=== PATIENT | male | born 1970 | race Caucasian/White ===

== ENCOUNTER 2024-08-11 11:45 | Inpatient (IN) | payer OTHER, SELFPAY ==
--- NOTE | ~2024-08-11 | CT_ITS ---
CLINICAL HISTORY: Left flank pain, r o renal colic CT abdomen and pelvis without IV contrast. COMPARISON: None FINDINGS: Partially visualized lung bases are unremarkable. Hepatic steatosis. Normal gallbladder. Noncontrast appearance of the spleen, pancreas and adrenal glands are unremarkable. No right-sided hydronephrosis. No right renal or ureteral calculus. Mild left hydronephrosis. Mild left hydroureter. At the left UVJ there is a 3 mm ureteral calculus. Diminutive appendix. Mild distal colonic diverticulosis without evidence of diverticulitis. No mesenteric or retroperitoneal lymphadenopathy. Moderate aortoiliac atherosclerotic vascular calcifications. Normal appearance of the urinary bladder. Prostate calcifications present. Prostate is enlarged measuring up to 5.4 cm. No inguinal lymphadenopathy. Grade 1 retrolisthesis of L3 on L4, degenerative. Moderate lumbar spondylosis. IMPRESSION: 1. Left UVJ 3 mm calculus causes mild left hydronephrosis and hydroureter. 2. Prostatomegaly. 3. Hepatic steatosis. This document has been electronically signed by: Marcell Burnett MD on 08/11/2024 13:54:58
--- NOTE | ~2024-08-11 | XR_ITS ---
CLINICAL HISTORY: infected thumb. eval for osteo Three views of the right hand. COMPARISON: None FINDINGS: Distal radius and ulna appear intact. Carpal bones and metacarpals appear intact. Chronic healed fracture deformity of the 5th metacarpal. Well-defined lucency within the distal aspect of the 5th distal phalanx suggestive of osteomyelitis/Kyle's abscess. There is overlying soft tissue edema/swelling. No cortical destruction identified. IMPRESSION: 1. Lucency within the distal aspect of the 5th distal phalanx suggestive osteomyelitis/Kyle's abscess. No definite cortical destruction or pathologic fracture identified. This document has been electronically signed by: Marcell Burnett MD on 08/11/2024 13:10:19
--- NOTE | ~2024-08-11 | FL_ITS ---
EXAMINATION: FL GUIDANCE ONLY HISTORY: INTRAOPERATIVE GUIDANCE COMPARISON: Correlation is made with plain films of the right hand dated 08/11/2024. TECHNIQUE: Fluoroscopy time: 5.72 seconds. Cumulative Dose: 0.1295 mGy. DAP: 0.0078 mGym2 Images: 9. FINDINGS: Images demonstrate a probe in the distal phalanx of the thumb at the site of the previously seen lucency. FL/FL guidance in OR IMPRESSION: Fluoroscopy during procedure. Please see procedure report for additional information. Electronically signed by: Madan Mathew MD 08/12/2024 12:25 PM EDT
[2024-08-11 11:49] VITALS: BP 148/85; PULSE 72; RESP 18; TEMP 36.4; O2SAT 99; BMI 28.1
--- NOTE | 2024-08-11 11:49 | ED.ABDPAIN ---
HPI - Abdominal Pain General Chief Complaint: Abdominal Pain Stated Complaint: abd pain Time Seen by Provider: 08/11/24 12:10 Source: patient Mode of arrival: ambulatory Limitations: no limitations History of Present Illness ED Provider: Kathraine Fang APRN HPI narrative: 54 yo male with no known medical history but has not seen a PCP in over 10 years presents to the ER with complaints of intermittent lower back pain since yesterday with radiation to his left abdomen. No associated vomiting, diarrhea, urinary symptoms, constipation, fevers, chills, testicle pain. No abdominal surgical history. Former smoker (>5 yrs). Former alcohol drinker (>5 yrs). Also c/o right 1st finger swelling, lesion with intermittent bleeding when he hits it on an object. No pain, numbness, tingling. Has had fungal infections of other nails and has had a fungal infection in this nail in which he was treated with an oral agent but he noticed no change. Related Data Allergies Allergy/AdvReac Type Severity Reaction Status Date / Time No Known Allergies Allergy Verified 08/11/24 11:51 Review of Systems Review of Systems Yes all other systems are reviewed and are negative Constitutional: Reports no additional constitutional complaints, Denies body ache(s), Denies chills, Denies fever(s), Denies headache(s) and Denies weakness Eyes: Reports no additional eye complaints and Denies change in vision Reports system reviewed and no additional complaints, except as documented, Denies dizziness, Denies headache(s), Denies nasal congestion, Denies nasal discharge and Denies neck pain Cardiovascular: Reports no additional cardiovascular complaints, Denies chest pain, Denies leg edema and Denies dyspnea Respiratory: Reports no additional respiratory complaints, Denies cough and Denies dyspnea Gastrointestinal: Reports no additional gastrointestinal complaints, Reports abdominal pain, Denies diarrhea, Denies nausea and Denies vomiting Genitourinary: Denies urinary incontinence Musculoskeletal: Reports no additional musculoskeletal complaints, Reports back pain, Denies arthralgias, Denies joint swelling, Denies neck pain, Denies numbness and Denies tingling Skin/Breast: Reports system reviewed and no additional complaints, except as docu, Reports swelling, Reports nail changes, Reports change in nails, Reports erythema and Denies rash Reports system reviewed and no additional complaints, except as documented, Denies Abnormal speech present, Denies dizziness, Denies headache(s), Denies numbness, Denies tingling and Denies weakness [facility] Past Medical History Attestation statement: The following information was validated with the patient. Source: old records reviewed and nursing notes reviewed Social History Social History Unable to assess alcohol history related to: Unknown Smoked in Last 30 Days: No Use of substances other than those prescribed or required for medical reasons: No Advance Directives: No Advance Directives Information Provided: Yes Do you have a plan to hurt others: No Plan Physical Exam ED Vital Signs: Vital Signs - 24 hr 08/11/24 11:49 08/11/24 14:54 Temperature 97.5 F 97.5 F Pulse Rate 72 76 Respiratory Rate 18 18 Blood Pressure 148/85 H 129/78 Pulse Oximetry 99 99 Oxygen Delivery Method Room Air Room Air BMI result Body Mass Index 28.1 Const General: cooperative, healthy appearing, comfortable and no acute distress Orientation/consciousness: patient oriented x3 Limitations: no limitations HENMT Head: Yes normal to inspection Ears: hearing grossly normal bilaterally General nose exam: Normal external nose present Face and sinus: Yes normal facial exam Mouth: Normal oral and palatal mucosa present Throat: Yes posterior oropharynx normal Eyes General: appearance normal, both eyes and all related structures Pupils: Equal, round and reactive pupils present Neck Neck: Yes normal visual inspection Chest Chest palpation & inspection: normal inspection of the chest Resp Effort & Inspection: normal respiratory effort Auscultation: clear to auscultation bilaterally Cardio Rate: regular rate Rhythm: regular rhythm Peripheral pulses: Peripheral pulses 2+ throughout GI Inspection: Yes normal to inspection Palpation (GI): Soft to palpation, Tenderness to palpation present (GI) in the LUQ; with no rebound tenderness and no guarding Auscultation: normal bowel sounds General: Yes no CVA tenderness Back/Spine/Pelvis Back: no CVA tenderness Thoracic/Lumbar Spine: thoracic and lumbar spine normal to inspection Skin Other: General skin exam: no rashes or lesions noted Neuro General: patient oriented x3, no focal motor deficits and normal sensation to monofilament Cranial nerves: Yes Equal, round and reactive pupils present Cognition (Neuro): normal cognition Speech: No Abnormal speech present Gait exam (Neuro): Normal gait present Motor exam (neuro): 5/5 motor strength present throughout Extrem General: Yes normal to inspection Course Course Course Narrative: This is an RME performed by Demetria Suárez CNP: Additional HPI, ROS, PE not included below will be deferred to primary provider. Patient is a 54-year-old male who presents to the emergency department for evaluation of lower back pain bilaterally radiating to the abdomen. pain has been intermittent. Plan: Serum labs, urinalysis Reevaluation(s) Reevaluation #1: 1338- X-ray of right hand shows osteomyelitis of the 1st digit. At this time infection is suspected. Antibiotics ordered in addition to blood cultures and lactic acid. Anticipate admission Reevaluation #2: 1428- CAT scan shows a left UVJ 3 mm calculi with mild left hydro and hydroureter. Pain is well controlled. Patient has normal renal function. Can likely follow up outpatient with Urology Medical Decision Making Medical Decision Making [facility] Narrative: 54 yo male with no known medical history but has not seen a PCP in over 10 years presents to the ER with complaints of intermittent lower back pain since yesterday with radiation to his left abdomen. No associated vomiting, diarrhea, urinary symptoms, constipation, fevers, chills, testicle pain. No abdominal surgical history. Former smoker (>5 yrs). Former alcohol drinker (>5 yrs). Also c/o right 1st finger swelling, lesion with intermittent bleeding when he hits it on an object. No pain, numbness, tingling. Has had fungal infections of other nails and has had a fungal infection in this nail in which he was treated with an oral agent but he noticed no change. On exam has TTP LUQ with no rebound or guarding. +BS See PE for photos of right hand Will obtain labs, UA, CT, x-ray right hand Patient very anxious which he tells me has inhibited seeking medical care. Will give lorazepam. Differential Diagnosis Differential Diagnoses: The differential diagnosis associated with the presentation includes pancreatitis, renal colic, SBO, pyelo, gastritis Osteomyelitis, fungal nail infection Admission/Observation Consideration of admission/observation: Escalation of care including admission/observation considered X-ray is c/w with osteo. Will need admission for IV antibiotics Consult Healthcare Provider Management of the patient was discussed with: Hospitalist AJ @[phone]-accepted admit Lab Data [facility] Lab Attestation statement: I reviewed the patient's lab results. 08/11/24 12:19 08/11/24 12:19 Labs: Lab Results 08/11/24 08/11/24 08/11/24 Range/Units 12:19 13:56 14:58 WBC 8.3 (4.8-10.8) X10*3/uL RBC 5.38 (4.60-5.80) X10*6/uL Hgb 15.5 (14.0-18.0) g/dl Hct 44.8 (42.0-52.0) % MCV 83.3 (80.0-98.0) fL MCH 28.8 (27.0-33.0) pg MCHC 34.6 (31.0-36.0) g/dl RDW 13.3 (11.0-16.0) % Plt Count 262 (160-400) X10*3/uL MPV 9.5 (9.4-12.4) fL Immature Gran % (Auto) 0.2 (0.0-0.4) % Neut % (Auto) 72.9 (45-73) % Lymph % (Auto) 18.1 L (20-40) % [place] % (Auto) 7.4 (2-11) % Eos % (Auto) 0.7 (0-4) % Baso % (Auto) 0.7 (0-2) % Lymph # (Auto) 1.5 (1.2-4.9) X10*3/uL [place] # (Auto) 0.6 (0.1-1.2) X10*3/uL Eos # (Auto) 0.1 (0.0-0.4) X10*3/uL Baso # (Auto) 0.1 (0.0-0.2) X10*3/uL Abs Immat Gran (auto) 0.02 (0.00-0.03) X10*3/uL Absolute Neuts (auto) 6.1 (2.0-8.3) x10*3/uL Absolute Nucleated RBC 0.000 (0.0-0.012) X10*3/uL Nucleated RBC % (auto) 0.0 (0.0-0.2) /100WBC Sodium 141 (135-145) mmol/L Potassium 4.1 (3.3-5.1) mmol/L Chloride 109 H (96-108) mmol/L Carbon Dioxide 24 (22-29) mmol/L Anion Gap 12 (12-20) BUN 10 (9-16) mg/dL Creatinine 1.13 (0.5-1.4) mg/dL Estim Creat Clear Calc 78.8 Estimated GFR > 60 Random Glucose 123 H (60-115) mg/dL Lactic Acid 1.2 (0.5-2.0) mmol/L Calcium 9.7 (8.4-10.2) mg/dL Total Bilirubin 0.5 (0.0-1.0) mg/dL Direct Bilirubin 0.1 (0.0-0.5) mg/dL AST 32 (5-37) U/L ALT 58 H (0-40) U/L Alkaline Phosphatase 81 (39-117) U/L Total Protein 7.7 (6.5-8.0) g/dL Albumin 4.7 (3.5-5.0) g/dL Lipase 32 (8-78) U/L Urine Color Yellow Urine Appearance Cloudy Urine pH 5.5 (5.0-9.0) Ur Specific [place] 1.020 (1.005-1.025) Urine Protein 30 (1+) H (Neg-Trace) mg/dL Urine Glucose (UA) Negative (Negative) mg/dL Urine Ketones Trace (Negative) mg/dL Urine Blood Large (3+) H (Negative) Urine Nitrite Negative (Negative) Ur Leukocyte Esterase Trace H (Negative) Independent Interpretation I performed an independent interpretation of an: Plain X-Ray and CT Scan Interpretation: I independently reviewed the x-ray and CAT scan agree with the radiology report Radiology Impression Discussion of test interpretation with radiology: I have reviewed the radiologist's reading. Radiologist Impression: [address] [address] XRay Report Signed Patient: Michelet Curry MR#: [id number] : 1970 Acct:[id number] Age/Sex: 54 / M ADM Date: 08/11/24 Loc: .ED Attending Dr: Ordering Physician: Katharine Fang NP Date of Service: 08/11/24 Procedure(s): XR hand RT 2V Accession Number(s): [id number] cc: Katharine Fang NP; Physician,None ~ CLINICAL HISTORY: infected thumb. eval for osteo Three views of the right hand. COMPARISON: None FINDINGS: Distal radius and ulna appear intact. Carpal bones and metacarpals appear intact. Chronic healed fracture deformity of the 5th metacarpal. Well-defined lucency within the distal aspect of the 5th distal phalanx suggestive of osteomyelitis/Kyle's abscess. There is overlying soft tissue edema/swelling. No cortical destruction identified. IMPRESSION: 1. Lucency within the distal aspect of the 5th distal phalanx suggestive osteomyelitis/Kyle's abscess. No definite cortical destruction or pathologic fracture identified. This document has been electronically signed by: Marcell Burnett MD on 08/11/2024 13:10:[address] [place] [id number] [address] Scan Report Signed Patient: Michelet Curry MR#: [id number] : 1970 Acct:[id number] Age/Sex: 54 / M ADM Date: 08/11/24 Loc: HO.ED Attending Dr: Ordering Physician: Katharine Fang NP Date of Service: 08/11/24 Procedure(s): CT abdomen pelvis wo IV con Accession Number(s): [id number] cc: Katharine Fang NP; Physician,None ~ Report Number: [id number]: Total DLP = 538.00 mGy-cm CLINICAL HISTORY: Left flank pain, r o renal colic CT abdomen and pelvis without IV contrast. COMPARISON: None FINDINGS: Partially visualized lung bases are unremarkable. Hepatic steatosis. Normal gallbladder. Noncontrast appearance of the spleen, pancreas and adrenal glands are unremarkable. No right-sided hydronephrosis. No right renal or ureteral calculus. Mild left hydronephrosis. Mild left hydroureter. At the left UVJ there is a 3 mm ureteral calculus. Diminutive appendix. Mild distal colonic diverticulosis without evidence of diverticulitis. No mesenteric or retroperitoneal lymphadenopathy. Moderate aortoiliac atherosclerotic vascular calcifications. Normal appearance of the urinary bladder. Prostate calcifications present. Prostate is enlarged measuring up to 5.4 cm. No inguinal lymphadenopathy. Grade 1 retrolisthesis of L3 on L4, degenerative. Moderate lumbar spondylosis. IMPRESSION: 1. Left UVJ 3 mm calculus causes mild left hydronephrosis and hydroureter. 2. Prostatomegaly. 3. Hepatic steatosis. Medications Administered Generic Name Dose Route Start Last Admin Trade Name Freq PRN Reason Stop Dose Admin Vancomycin HCl 2,000 mg in 500 mls @ 250 mls/hr 08/11/24 13:35 08/11/24 14:08 Vancomycin/Ns IV 08/11/24 15:34 250 mls/hr ONCE ONE Administration Discontinued Medications Generic Name Dose Route Start Last Admin Trade Name Freq PRN Reason Stop Dose Admin Sodium Chloride 1,000 mls @ 999 mls/hr 08/11/24 12:26 08/11/24 12:36 Ns IV 08/11/24 13:26 999 mls/hr .Q1H1M STA Administration Ketorolac Tromethamine 15 mg 08/11/24 13:14 08/11/24 14:07 Ketorolac Tromethamine 15 Mg/Ml Vial IVPUSH 08/11/24 13:15 15 mg ONCE ONE Administration Lorazepam 0.5 mg 08/11/24 12:26 08/11/24 12:36 Lorazepam 2 Mg/Ml Vial IVPUSH 08/11/24 12:27 0.5 mg STAT STA Administration Critical Care Time Critical Care Time Critical Care Time: Yes Total Critical Care Time: 45 Attestation: Admission to the medicine service with discussion with hospitalist, re-evaluations and discussion of goals of care with patient Discharge Plan Discharge Clinical Impression: Osteomyelitis, Calculus of kidney Patient Disposition: Admitted As Inpatient Print Language: Korean
[2024-08-11 12:24] LABS: MANUAL DIFF FLAG NO
[2024-08-11 12:25] LABS: Basophils Absolute Auto 0.1 X10*3/uL (0.0-0.2); Basophils Percent Auto 0.7 % (0-2); Eosinophils Absolute Auto 0.1 X10*3/uL (0.0-0.4); Eosinophils Percent Auto 0.7 % (0-4); Hematocrit 44.8 % (42.0-52.0); Hemoglobin 15.5 g/dl (14.0-18.0); Imm Gran Abs Auto 0.02 X10*3/uL (0.00-0.03); Imm Gran Pct Auto 0.2 % (0.0-0.4); Lymphocytes Absolute Auto 1.5 X10*3/uL (1.2-4.9); Lymphocytes Percent Auto 18.1 % (20-40); Mean Corpuscular HGB Conc 34.6 g/dl (31.0-36.0); Mean Corpuscular Hemoglobin 28.8 pg (27.0-33.0); Mean Corpuscular Volume 83.3 fL (80.0-98.0); Mean Platelet Volume 9.5 fL (9.4-12.4); Monocytes Absolute Auto 0.6 X10*3/uL (0.1-1.2); Monocytes Percent Auto 7.4 % (2-11); Neutrophils Absolute Auto 6.1 x10*3/uL (2.0-8.3); Neutrophils Percent Auto 72.9 % (45-73); Platelet Count 262 X10*3/uL (160-400); Red Blood Count 5.38 X10*6/uL (4.60-5.80); Red Cell Distribution Width 13.3 % (11.0-16.0); White Blood Count 8.3 X10*3/uL (4.8-10.8)
[2024-08-11] MEDS: LORazepam 2 MG/ML VIAL 0.5 MG IVPUSH (12:36)
[2024-08-11] MEDS: 0.9 % Sodium Chloride 1,000 ML 999 ML IV (12:36)
[2024-08-11 13:12] LABS: Alanine Aminotransferase 58 U/L (0-40); Albumin Level 4.7 g/dL (3.5-5.0); Alkaline Phosphatase 81 U/L (39-117); Anion Gap 12 (12-20); Aspartate Amino Transferase 32 U/L (5-37); Bilirubin Direct 0.1 mg/dL (0.0-0.5); Bilirubin Total 0.5 mg/dL (0.0-1.0); Blood Urea Nitrogen 10 mg/dL (9-16); Calcium 9.7 mg/dL (8.4-10.2); Carbon Dioxide 24 mmol/L (22-29); Chloride 109 mmol/L (96-108); Creatinine Clr Calc Pharmacy 78.8; Estimated Glomerular Filt Rate > 60; Glucose Random 123 mg/dL (60-115); Lipase 32 U/L (8-78); Potassium 4.1 mmol/L (3.3-5.1); Sodium 141 mmol/L (135-145); Total Protein 7.7 g/dL (6.5-8.0)
[2024-08-11] MEDS: Ketorolac Tromethamine 15 MG/ML VIAL IVPUSH (14:07)
[2024-08-11] MEDS: vancomycin/NS 2,000 MG/500 ML PLAST..BAG 250 MG IV (14:08)
[2024-08-11 14:38] LABS: Lactic Acid 1.2 mmol/L (0.5-2.0)
--- NOTE | 2024-08-11 14:48 | P.HPHOSP_ITS ---
History of Present Illness Date of Service: 08/11/24 Chief Complaint: thumb pain, abdominal pain 54 year old man presenting with left flank pain. He reported having left flank pain with no other associated symptoms. Abd CT showed Left UVJ 3 mm calculus causes mild left hydronephrosis and hydroureter. incidentally his left thumb had what appeared to be a fungal infection and patient reported a hx of fungal infections fingernails of both hands. He reported that his right thumb would get worse and would heal. He reported symptoms for about a year of and on. Hand xray showed Lucency within the distal aspect of the 5th distal phalanx suggestive of osteomyelitis/Kyle's abscess. Labs WNL, vital signs stable. He was given a dose of vancomycin, ativan and toradol. He will be admitted for treatment of osteomyelitis and Hydronephrosis Review of Systems 2 Review of Systems: Denies any recent fever chills or decrease in appetite respiratory denies any shortness of breath or cough cardiovascular denied chest pain gastrointestinal denies any dysphagia abdominal pain nausea vomiting or diarrhea genitourinary denies any dysuria frequency or hematuria musculoskeletal denies any joint pain or swelling, right thumb discomfort neuropsych denies any weakness or seizures all other systems reviewed are negative [facility] Medical History (Updated 08/11/24 @ 15:45 by Mayelin Del Cid NP) No pertinent past medical history Pertinent family history: no significant family hx of cardiac disease Surgical History (Updated 08/11/24 @ 15:45 by Mayelin Del Cid NP) No pertinent past surgical history Social History (Updated 08/11/24 @ 15:45 by Mayelin Del Cid NP) Household Members: Spouse Unable to assess alcohol history related to: Unknown Substance Use Type: Marijuana Meds Allergies Allergy/AdvReac Type Severity Reaction Status Date / Time No Known Allergies Allergy Verified 08/11/24 11:51 Active Medications: Current Medications Vancomycin HCl (Vancomycin/Ns) 2,000 mg in 500 mls @ 250 mls/hr IV ONCE ONE Stop: 08/11/24 15:34 Last Admin: 08/11/24 14:08 Dose: 250 mls/hr Home Medications ?Medication ?Instructions ?Recorded ?Confirmed ?Last Taken ?Type No Known Home Meds 08/11/24 08/11/24 Unknown History Physical Exam 2 Vital Signs and Narrative: Vital Signs: Last Vital Signs Temp 97.5 F 08/11/24 11:49 Pulse 72 08/11/24 11:49 Resp 18 08/11/24 11:49 BP 148/85 H 08/11/24 11:49 Pulse Ox 99 08/11/24 11:49 O2 Del Method Room Air 08/11/24 11:49 BMI result Body Mass Index 28.1 Appearing in no acute distress head is normocephalic atraumatic eyes pupils are PERRLA sclera is anicteric mouth throat mucous membranes are intact and moist neck is supple no lymphadenopathy, no JVD noted lung sounds are clear to auscultation heart regular rate rhythm, clear S1, S2 positive bowel sounds, abdomen is soft, nontender neuro patient is alert x3, no focal deficits fungal infection to fingers Results Labs 08/11/24 12:19 08/11/24 12:19 Labs: Laboratory Results - last 24 hr 08/11/24 08/11/24 12:19 13:56 MCV 83.3 MCH 28.8 MCHC 34.6 RDW 13.3 Plt Count 262 MPV 9.5 Immature Gran % (Auto) 0.2 Neut % (Auto) 72.9 Lymph % (Auto) 18.1 L [place] % (Auto) 7.4 Eos % (Auto) 0.7 Baso % (Auto) 0.7 Lymph # (Auto) 1.5 [place] # (Auto) 0.6 Eos # (Auto) 0.1 Baso # (Auto) 0.1 Abs Immat Gran (auto) 0.02 Absolute Neuts (auto) 6.1 Absolute Nucleated RBC 0.000 Nucleated RBC % (auto) 0.0 Anion Gap 12 Estim Creat Clear Calc 78.8 Estimated GFR > 60 Random Glucose 123 H Lactic Acid 1.2 Calcium 9.7 Total Bilirubin 0.5 Direct Bilirubin 0.1 AST 32 ALT 58 H Alkaline Phosphatase 81 Total Protein 7.7 Albumin 4.7 Lipase 32 Assessment and Plan (1) Calculus of kidney: Status: Acute (2) Osteomyelitis: Status: Acute Plan 54 year old man admitted with thumb osteomyelitis and hydronephrosis Osteomyelitis hand x-ray showing 5th distal phalanx suggestive of osteomyelitis/Kyle's abscess IV Vancomycin ID and orthopedic surgery consultation pain management as needed will need picc line Abdominal pain urinating fine Abdominal CT showing left UVJ 3 mm calculus causing mild left hydronephrosis and hydroureter Urology consultation Finger nail fungus will discuss with ID 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 BMI 28.1 Weight management DVT prophylaxis with heparin Full code Quality Stroke Does the patient have a stroke diagnosis?: No VTE Prior VTE?: No VTE Risk Level:: Medical - moderate - high VTE Device Contraindication: Treatment Not Indicated VTE Drug Contraindication: N/A - Med Ordered
[2024-08-11 14:54] VITALS: BP 129/78; PULSE 76; RESP 18; TEMP 36.4; O2SAT 99
[2024-08-11 15:04] LABS: Appearance Urine Cloudy; Color Urine Yellow; Glucose Urine UA Negative (Negative); Leukocyte Esterase Urine Trace (Negative); Nitrite Urine Negative (Negative); PH 5.5 (5.0-9.0); UMIC TRIGGER UACC YES; Urine Blood Large (3+) (Negative); Urine Ketones Trace mg/dL (Negative); Urine Protein 30 (1+) mg/dL (Neg-Trace)
--- NOTE | 2024-08-11 15:15 | PHA.MEDREC ---
Addendum entered by Armando Schwartz RP 08/11/24 16:15: MED REC CHECKED BY [facility] Original Note: Pharmacy Consult ? Medication Reconciliation Pharmacy has completed the medication reconciliation. Patient confirmed.
[2024-08-11 15:16] LABS: Bacteria Urine None Seen (None Seen); Hyaline Casts Urine >20 /LPF (0-2); RBC Urine >20 /HPF (0-2); WBC Urine 0-5 /HPF (0-5)
[2024-08-11 15:38] VITALS: BP 129/83; PULSE 61; RESP 17; TEMP 36.8; O2SAT 96
--- NOTE | 2024-08-11 16:02 | PHA.PROG ---
Admission Date/Time: August 11, 2024 15:01 Indication: SKIN Weight in k.9 kg Adjusted body weight in Kg: [place] body weight in Kg: Obesity Dosing Indication % IBW: Serum Creatinine - Last 168 Hours 08/11/24 12:19 Creatinine 1.13 Estimated CrCl and GFR - Last 168 Hours 08/11/24 12:19 Estim Creat Clear Calc 78.8 Estimated GFR > 60 Vancomycin Loading Dose: 2000 MG Current Vancomycin Dosing Regimen: 750 MG Q12H Vancomycin Monitoring using AUC goal of 400 - 600 range with trough as surrogate marker: BRA=698 TROUGH=13.8 Date and Time for next Vancomycin Level to be drawn: 08/12/24 @1200 Pharmacist Comments on Vancomycin Plan: Vancomycin dosing will take advantage of [employer] as a clinical decision support tool that uses Bayesian modeling to calculate individual patient's pharmacokinetic parameters and forecast the patient's drug concentration time course with the target goal AUC 24 range of 400 - 600 mg/L/hr.
--- NOTE | 2024-08-11 16:23 | PM.UROCN ---
History of Present Illness Consult details Consult date: 08/11/24 Narrative: CC: Distal left ureteric stone 54-year-old male Present with symptoms of intermittent left flank pain Pain as high as 8/10 and waxing and waning in nature Denies hematuria, dysuria, urgency or frequency Noted to have osteomyelitis with overlying fungal infection of 5th distal phalanx Creatinine 1.1, calcium 9.7, WBC 8.3 CT imaging reviewed personally - Left UVJ 3 mm calculus causes mild left hydronephrosis and hydrour Recommend IV fluids, alpha-johnnie, prednisone. Stone should pass Review of Systems Constitutional: Constitutional: Reports as per HPI and Reports no additional constitutional complaints Cardiovascular: Cardiovascular: Reports as per HPI and Reports no additional cardiovascular complaints Respiratory: Respiratory: Reports as per HPI and Reports no additional respiratory complaints Gastrointestinal: Gastrointestinal: Reports as per HPI and Reports no additional gastrointestinal complaints Genitourinary: Genitourinary: Reports as per HPI Musculoskeletal: Musculoskeletal: Reports no additional musculoskeletal complaints and Reports as per HPI Neurologic: Reports system reviewed and no additional complaints, except as documented and Reports as per HPI REPLACED BY [facility] Past Medical History Medical History (Updated 08/11/24 @ 16:27 by Ramos Cloud MD) No pertinent past medical history Surgical History Surgical History (Updated 08/11/24 @ 15:45 by Mayelin Del Cid NP) No pertinent past surgical history Social History Social History (Updated 08/11/24 @ 15:45 by Mayelin Del Cid NP) Household Members: Spouse Unable to assess alcohol history related to: Unknown Smoked in Last 30 Days: No Use of substances other than those prescribed or required for medical reasons: No Substance Use Type: Marijuana Advance Directives: No Advance Directives Information Provided: Yes Do you have a plan to hurt others: No Plan Meds Allergies Allergy/AdvReac Type Severity Reaction Status Date / Time No Known Allergies Allergy Verified 08/11/24 11:51 Active Medications: Current Medications Acetaminophen (Acetaminophen 325 Mg Tablet) 650 mg PO Q6H PRN PRN Reason: Pain, Mild 1-3,fever,headache Calcium Carbonate (Calcium Carbonate 750 Mg Tab.Chew) 750 mg PO Q4H PRN PRN Reason: Heartburn Heparin Sodium (Porcine) (Heparin Sodium,Porcine 5,000 Unit/Ml Vial) 5,000 unit SUBCUT Q12H CR Vancomycin HCl 750 mg/ Sodium (Chloride) 265 mls @ 265 mls/hr IV Q12H [facility] Ketorolac Tromethamine (Ketorolac Tromethamine 30 Mg/Ml Vial) 30 mg IVPUSH Q6H PRN PRN Reason: Pain, Mild (Pain Scale 1-3) Lorazepam (Lorazepam 0.5 Mg Tablet) 0.5 mg PO Q8H PRN PRN Reason: Anxiety Magnesium Hydroxide (Milk Of Magnesia 30 Ml Oral.Susp) 30 ml PO DAILY PRN PRN Reason: Constipation Melatonin (Melatonin 3 Mg Tablet) 6 mg PO BEDTIME PRN PRN Reason: Insomnia Morphine Sulfate (Morphine Sulfate 2 Mg/Ml Cartridge) 1 mg IVPUSH Q6H PRN; Protocol PRN Reason: Pain, Severe (Pain Scale 7-10) Ondansetron HCl (Ondansetron Hcl 4 Mg/2 Ml Vial) 4 mg IVPUSH Q8H PRN PRN Reason: Nausea and Vomiting Oxycodone HCl (Oxycodone Hcl Immed Release 5 Mg Tablet) 5 mg PO Q6H PRN PRN Reason: Pain, Moderate(Pain Scale 4-6) Pharmacy Consult (Consult Rx Vancomycin Dosing) 1 each MISCELLANE DAILY PRN PRN Reason: Consult order Sodium Chloride (0.9 % Sodium Chloride Flush 3 Ml Syringe) [facility] Home Medications ?Medication ?Instructions ?Recorded ?Confirmed ?Last Taken ?Type No Known Home Meds 08/11/24 08/11/24 Unknown History Physical Exam Vital Signs: Vital Signs: Last Vital Signs Temp 98.3 F 08/11/24 15:38 Pulse 61 08/11/24 15:38 Resp 17 08/11/24 15:38 BP 129/83 08/11/24 15:38 Pulse Ox 96 08/11/24 15:38 O2 Del Method Room Air 08/11/24 15:38 BMI result Body Mass Index 28.1 Const: General: cooperative, healthy appearing, comfortable and no acute distress Orientation/consciousness: patient oriented x3 HEENT: Face and sinus: Yes normal facial exam Mouth: moist mucous membranes Neck: Neck: Yes normal visual inspection, Yes full ROM and Yes trachea midline Chest: Chest palpation & inspection: normal inspection of the chest Resp: Effort & Inspection: normal respiratory effort, able to speak in complete sentences and no respiratory distress GI: Inspection: Yes normal to inspection Back/Spine/Pelvis: Cervical Spine: normal cervical lordosis Thoracic/Lumbar Spine: thoracic and lumbar spine normal to inspection Skin: General skin exam: no rashes or lesions noted Neuro: General: patient oriented x3, tone normal and moves all extremities Extrem: General: Yes normal to inspection and Yes capillary refill normal Results Labs 08/11/24 12:19 08/11/24 12:19 Labs: Abnormal lab results 08/11/24 08/11/24 Range/Units 12:19 14:58 Lymph % (Auto) 18.1 L (20-40) % Chloride 109 H (96-108) mmol/L Random Glucose 123 H (60-115) mg/dL ALT 58 H (0-40) U/L Urine Protein 30 (1+) H (Neg-Trace) mg/dL Urine Blood Large (3+) H (Negative) Ur Leukocyte Esterase Trace H (Negative) Urine RBC >20 H (0-2) /HPF Short CBC 08/11/24 Range/Units 12:19 WBC 8.3 (4.8-10.8) X10*3/uL Hgb 15.5 (14.0-18.0) g/dl Hct 44.8 (42.0-52.0) % Plt Count 262 (160-400) X10*3/uL BMP 08/11/24 12:19 Sodium 141 Potassium 4.1 Chloride 109 H Carbon Dioxide 24 BUN 10 Creatinine 1.13 Calcium 9.7 Liver Function 08/11/24 Range/Units 12:19 Total Bilirubin 0.5 (0.0-1.0) mg/dL Direct Bilirubin 0.1 (0.0-0.5) mg/dL AST 32 (5-37) U/L ALT 58 H (0-40) U/L Alkaline Phosphatase 81 (39-117) U/L Albumin 4.7 (3.5-5.0) g/dL Urine 08/11/24 Range/Units 14:58 Urine Color Yellow Urine Appearance Cloudy Urine pH 5.5 (5.0-9.0) Ur Specific [place] 1.020 (1.005-1.025) Urine Protein 30 (1+) H (Neg-Trace) mg/dL Urine Glucose (UA) Negative (Negative) mg/dL All other labs normal. Assessment and Plan (1) Hydronephrosis concurrent with and due to calculi of kidney and ureter: Status: Acute Plan Medical expulsion therapy Tamsulosin plus prednisone plus fluids Observation Procedures Date of Service Date of Service: 08/11/24
[2024-08-11] MEDS: predniSONE 20 MG TABLET PO (16:35)
[2024-08-11] MEDS: Morphine Sulfate 2 MG/ML CARTRIDGE 1 MG IVPUSH ×2 (16:37→18:28)
--- NOTE | 2024-08-11 16:47 | P.CONOP_ITS ---
History of Present Illness [facility] Consult date: 08/11/24 Chief complaint: abd pain, Osteomyelitis Narrative: Patient is a 54-year-old male admitted to the hospital for abdominal pain and right thumb injury /infection patient reports many recurrent injuries to the nail of the right thumb patient reports he has had issues with fungal infections in the digits of both hands over the years, but that the infection in his right thumb has gotten quite severe patient does report drainage from the area, slight redness denies tenderness or significant swelling denies numbness or tingling Review of Systems 2 Review of Systems: Yes all other systems are reviewed and are negative [facility] Past Medical History Medical History (Updated 08/11/24 @ 16:53 by SELVIN Nash) No pertinent past medical history Surgical History Surgical History (Updated 08/11/24 @ 15:45 by Mayelin Del Cid NP) No pertinent past surgical history Social History Social History (Updated 08/11/24 @ 15:45 by Mayelin Del Cid NP) Household Members: Spouse Unable to assess alcohol history related to: Unknown Smoked in Last 30 Days: No Use of substances other than those prescribed or required for medical reasons: No Substance Use Type: Marijuana Advance Directives: No Advance Directives Information Provided: Yes Do you have a plan to hurt others: No Plan Meds Allergies Allergy/AdvReac Type Severity Reaction Status Date / Time No Known Allergies Allergy Verified 08/11/24 11:51 Active Medications: Current Medications Acetaminophen (Acetaminophen 325 Mg Tablet) 650 mg PO Q6H PRN PRN Reason: Pain, Mild 1-3,fever,headache Calcium Carbonate (Calcium Carbonate 750 Mg Tab.Chew) 750 mg PO Q4H PRN PRN Reason: Heartburn Heparin Sodium (Porcine) (Heparin Sodium,Porcine 5,000 Unit/Ml Vial) 5,000 unit SUBCUT Q12H CR Vancomycin HCl 750 mg/ Sodium (Chloride) 265 mls @ 265 mls/hr IV Q12H CR Ketorolac Tromethamine (Ketorolac Tromethamine 30 Mg/Ml Vial) 30 mg IVPUSH Q6H PRN PRN Reason: Pain, Mild (Pain Scale 1-3) Lorazepam (Lorazepam 0.5 Mg Tablet) 0.5 mg PO Q8H PRN PRN Reason: Anxiety Magnesium Hydroxide (Milk Of Magnesia 30 Ml Oral.Susp) 30 ml PO DAILY PRN PRN Reason: Constipation Melatonin (Melatonin 3 Mg Tablet) 6 mg PO BEDTIME PRN PRN Reason: Insomnia Morphine Sulfate (Morphine Sulfate 2 Mg/Ml Cartridge) 1 mg IVPUSH Q6H PRN; Protocol PRN Reason: Pain, Severe (Pain Scale 7-10) Last Admin: 08/11/24 16:37 Dose: 1 mg Ondansetron HCl (Ondansetron Hcl 4 Mg/2 Ml Vial) 4 mg IVPUSH Q8H PRN PRN Reason: Nausea and Vomiting Oxycodone HCl (Oxycodone Hcl Immed Release 5 Mg Tablet) 5 mg PO Q6H PRN PRN Reason: Pain, Moderate(Pain Scale 4-6) Pharmacy Consult (Consult Rx Vancomycin Dosing) 1 each MISCELLANE DAILY PRN PRN Reason: Consult order Prednisone (Prednisone 20 Mg Tablet) 20 mg PO DAILY [facility] Last Admin: 08/11/24 16:35 Dose: 20 mg Sodium Chloride (0.9 % Sodium Chloride Flush 3 Ml Syringe) [facility] Last Admin: 08/11/24 16:35 Dose: Not Given Tamsulosin HCl (Tamsulosin Hcl 0.4 Mg Capsule) 0.4 mg PO BEDTIME [facility] Home Medications ?Medication ?Instructions ?Recorded ?Confirmed ?Last Taken ?Type No Known Home Meds 08/11/24 08/11/24 Unknown History Physical Exam 2 Vital Signs: Vital Signs: Last Vital Signs Temp 98.3 F 08/11/24 15:38 Pulse 61 08/11/24 15:38 Resp 17 08/11/24 15:38 BP 129/83 08/11/24 15:38 Pulse Ox 96 08/11/24 15:38 O2 Del Method Room Air 08/11/24 15:38 BMI result Body Mass Index 28.1 Extrem: Other: Patient is alert, oriented, and in no acute distress. Neuro: Normal sensation of the tips of all digits of the right hand at this time Vascular: Cap refill brisk Pain: very minimal tenderness to palpation about the distal phalanx of the right thumb no tenderness to palpation of the pad of the right thumb ROM: patient was able to make a full closed fist and extend all other digits of the right hand fully and without difficulty Skin: significant deformity of the nail of the right thumb consistent with severe fungal infection there is some surrounding erythema and scant bloody discharge from the thumb no active purulent drainage at this time Psych: Appears grossly normal Affect normal Attitude cooperative Results Labs 08/11/24 12:19 08/11/24 12:19 Labs: Abnormal lab results 08/11/24 08/11/24 Range/Units 12:19 14:58 Lymph % (Auto) 18.1 L (20-40) % Chloride 109 H (96-108) mmol/L Random Glucose 123 H (60-115) mg/dL ALT 58 H (0-40) U/L Urine Protein 30 (1+) H (Neg-Trace) mg/dL Urine Blood Large (3+) H (Negative) Ur Leukocyte Esterase Trace H (Negative) Urine RBC >20 H (0-2) /HPF H & H 08/11/24 Range/Units 12:19 Hgb 15.5 (14.0-18.0) g/dl Hct 44.8 (42.0-52.0) % All other labs normal. Diagnostic results Wrist/Hand x-ray: report reviewed and image reviewed Assessment and Plan (1) Osteomyelitis: Status: Acute (2) Infection of nail bed of finger of right hand: Status: Acute Plan 1. Osteomyelitis of distal phalanx of right thumb with evidence of intraosseous abscess 2. Nail bed infection of right thumb patient was educated about this condition Patient is educated about the typical treatment course At this time, case was discussed with Dr. Sim, who recommends surgical intervention I educated the patient about the condition. I discussed both operative and nonoperative treatment options. The patient would like to proceed with surgery. The risks and benefits of operative treatment were discussed with the patient and the patient wishes to proceed with surgery. These risks include, but are not limited to, risk of damage to blood vessels, nerves, tendons, infection, recurrence, incomplete relief of preoperative symptoms, persistent pain, possible need for further surgery, and the risks associated with regional blocks and/or anesthesia. Plan is to take the patient to the operating room at some point in the next few weeks for the following procedures: 1. Nail bed removal of right thumb under general 2. irrigation and Debridement of distal phalanx of right thumb hold IV antibiotics until postop NPO at midnight for surgery tomorrow continue with all other recommendations per Medicine Procedures Date of Service Date of Service: 08/11/24
--- NOTE | 2024-08-11 17:03 | PC.NURSE ---
Pt reported 6-7/10 pain to L flank; medicated per orders; denies nausea at this time; pt tolerating PO intake and knows to be NPO after midnight tonight per ortho regarding R thumb
[2024-08-11] MEDS: Heparin Sodium,Porcine 5,000 UNIT/ML VIAL 5000 UNIT SUBCUT (17:12)
[2024-08-11 18:31] VITALS: BP 140/81; PULSE 73; RESP 19; TEMP 36.9; O2SAT 96
[2024-08-11 20:49] VITALS: BP 135/80; PULSE 66; RESP 18; TEMP 36.2; O2SAT 97
[2024-08-11] MEDS: Tamsulosin HCL 0.4 MG CAPSULE PO (21:18)
[2024-08-11] MEDS: 0.9 % Sodium Chloride Flush 3 ML SYRINGE IVFLUSH (21:19)
[2024-08-11 22:00] VITALS: BP 132/76; PULSE 68; RESP 18; TEMP 36.3; O2SAT 97
[2024-08-12] VITALS (11 sets, daily range): BP systolic 120–160; BP diastolic 70–89; PULSE 52–79; RESP 16–20; TEMP 36–36.8; O2SAT 95–97
[2024-08-12] MEDS: vancomycin HCL 750 MG in 0.9 % Sodium Chloride 250 ML 265 MG IV (01:21)
--- NOTE | 2024-08-12 05:00 | PC.NURSE ---
Pt reported passing kidney stone last night, with much relief after.
[2024-08-12 07:50] LABS: Hematocrit 40.8 % (42.0-52.0); Hemoglobin 14.1 g/dl (14.0-18.0); Mean Corpuscular HGB Conc 34.6 g/dl (31.0-36.0); Mean Corpuscular Hemoglobin 29.2 pg (27.0-33.0); Mean Corpuscular Volume 84.5 fL (80.0-98.0); Mean Platelet Volume 10.4 fL (9.4-12.4); Platelet Count 244 X10*3/uL (160-400); Red Blood Count 4.83 X10*6/uL (4.60-5.80); Red Cell Distribution Width 13.2 % (11.0-16.0); White Blood Count 10.6 X10*3/uL (4.8-10.8)
[2024-08-12 07:57] LABS: Estimated Average Glucose 105 mg/dL; Hemoglobin A1C 126.7711 umol/L; Hemoglobin A1c % 5.3 % (<6.0); Total Hemoglobin (HGBA1C) 3649.7575 umol/L
[2024-08-12 08:03] LABS: Anion Gap 11 (12-20); Blood Urea Nitrogen 13 mg/dL (9-16); Calcium 9.3 mg/dL (8.4-10.2); Carbon Dioxide 23 mmol/L (22-29); Chloride 110 mmol/L (96-108); Creatinine Clr Calc Pharmacy 97.9; Estimated Glomerular Filt Rate > 60; Glucose Random 107 mg/dL (60-115); Potassium 4.1 mmol/L (3.3-5.1); Sodium 140 mmol/L (135-145)
[2024-08-12 08:12] LABS: Alanine Aminotransferase 45 U/L (0-40); Albumin Level 4.1 g/dL (3.5-5.0); Alkaline Phosphatase 67 U/L (39-117); Aspartate Amino Transferase 27 U/L (5-37); Bilirubin Direct 0.2 mg/dL (0.0-0.5); Bilirubin Total 0.6 mg/dL (0.0-1.0); Cholesterol 200 mg/dL (<200); Creatinine Clr Calc Pharmacy 94.7; Estimated Glomerular Filt Rate > 60; HDL Cholesterol 36 mg/dL (>40); LDL Cholesterol Calculated 137 mg/dL (<100); Total Protein 6.6 g/dL (6.5-8.0); Triglycerides 139 mg/dL (<150)
--- NOTE | 2024-08-12 08:13 | HO.WOUND ---
Wound Consult: Initial 54yr old?Male admitted to [facility] on 08/11/24 - See progress notes and H&P for detailed history.? Wound consult placed for Right Thumb infection.? Chart review reveals is seen and followed by Ortho Hand Surgery Team and plan to take to OR for surgical intervention. Will defer to surgery team, should topical wound care recommendations be needed re-consult inpatient wound care nurse.
[2024-08-12] MEDS: predniSONE 20 MG TABLET PO (08:23)
[2024-08-12] MEDS: 0.9 % Sodium Chloride Flush 3 ML SYRINGE IVFLUSH ×3 (08:25→20:36)
[2024-08-12 08:26] LABS: Thyroid Stimulating Hormone 0.66 uIU/mL (0.32-4.0)
--- NOTE | 2024-08-12 08:52 | HO.ANESPROP2 ---
[facility] Active Problems Active Problems: All Active Problems Infection of nail bed of finger of right hand (Acute) Hydronephrosis concurrent with and due to calculi of kidney and ureter (Acute) Calculus of kidney (Acute) Osteomyelitis (Acute) Past Medical History Medical History (Updated 08/11/24 @ 16:53 by SELVIN Nash) No pertinent past medical history Family History Family history of problems with anesthesia: No Surgical History Surgical History (Updated 08/11/24 @ 15:45 by Mayelin Del Cid NP) No pertinent past surgical history History of Problems with Anesthesia: No Social History Social History (Updated 08/11/24 @ 15:45 by Mayelin Del Cid NP) Household Members: Significant Other and Children Housing: Apartment Unable to assess alcohol history related to: Unknown Patient Tobacco Use Status: Current everyday Tobacco user e-Cigarette/Vaping Use: Currently Using Second Hand Smoke Exposure: No Substance Use Type: Marijuana Meds Allergies Allergy/AdvReac Type Severity Reaction Status Date / Time No Known Allergies Allergy Verified 08/11/24 11:51 Active Medications: Current Medications Acetaminophen (Acetaminophen 325 Mg Tablet) 650 mg PO Q6H PRN PRN Reason: Pain, Mild 1-3,fever,headache Calcium Carbonate (Calcium Carbonate 750 Mg Tab.Chew) 750 mg PO Q4H PRN PRN Reason: Heartburn Heparin Sodium (Porcine) (Heparin Sodium,Porcine 5,000 Unit/Ml Vial) 5,000 unit SUBCUT Q12H [facility] Last Admin: 08/12/24 03:45 Dose: Not Given Vancomycin HCl 750 mg/ Sodium (Chloride) 265 mls @ 265 mls/hr IV Q12H [facility] Last Infusion: 08/12/24 02:23 Dose: Infused Ketorolac Tromethamine (Ketorolac Tromethamine 30 Mg/Ml Vial) 30 mg IVPUSH Q6H PRN PRN Reason: Pain, Mild (Pain Scale 1-3) Lorazepam (Lorazepam 0.5 Mg Tablet) 0.5 mg PO Q8H PRN PRN Reason: Anxiety Magnesium Hydroxide (Milk Of Magnesia 30 Ml Oral.Susp) 30 ml PO DAILY PRN PRN Reason: Constipation Melatonin (Melatonin 3 Mg Tablet) 6 mg PO BEDTIME PRN PRN Reason: Insomnia Morphine Sulfate (Morphine Sulfate 2 Mg/Ml Cartridge) 1 mg IVPUSH Q6H PRN; Protocol PRN Reason: Pain, Severe (Pain Scale 7-10) Last Admin: 08/11/24 18:28 Dose: 1 mg Ondansetron HCl (Ondansetron Hcl 4 Mg/2 Ml Vial) 4 mg IVPUSH Q8H PRN PRN Reason: Nausea and Vomiting Oxycodone HCl (Oxycodone Hcl Immed Release 5 Mg Tablet) 5 mg PO Q6H PRN PRN Reason: Pain, Moderate(Pain Scale 4-6) Pharmacy Consult (Consult Rx Vancomycin Dosing) 1 each MISCELLANE DAILY PRN PRN Reason: Consult order Prednisone (Prednisone 20 Mg Tablet) 20 mg PO DAILY [facility] Last Admin: 08/12/24 08:23 Dose: 20 mg Sodium Chloride (0.9 % Sodium Chloride Flush 3 Ml Syringe) 3 ml IVFLUSH QSHIFT [facility] Last Admin: 08/12/24 08:25 Dose: 3 ml Tamsulosin HCl (Tamsulosin Hcl 0.4 Mg Capsule) 0.4 mg PO BEDTIME [facility] Last Admin: 08/11/24 21:18 Dose: 0.4 mg Home Medications ?Medication ?Instructions ?Recorded ?Confirmed ?Last Taken ?Type No Known Home Meds 08/11/24 08/11/24 Unknown History Exam Height,Weight and Vital Signs: Height 5 ft 8 in Weight 83.9 kg Last Vital Signs Temp 98.0 F 08/12/24 08:38 Pulse 57 08/12/24 08:38 Resp 16 08/12/24 08:38 BP 135/77 08/12/24 08:38 Pulse Ox 97 08/12/24 08:38 O2 Del Method Room Air 08/12/24 08:38 Pertinent Lab Results Pertinent Lab Results: Laboratory Tests 08/11/24 08/11/24 08/11/24 12:19 13:56 14:58 WBC 8.3 RBC 5.38 Hgb 15.5 Hct 44.8 MCV 83.3 MCH 28.8 MCHC 34.6 RDW 13.3 Plt Count 262 MPV 9.5 Immature Gran % (Auto) 0.2 Neut % (Auto) 72.9 Lymph % (Auto) 18.1 L [place] % (Auto) 7.4 Eos % (Auto) 0.7 Baso % (Auto) 0.7 Lymph # (Auto) 1.5 Wise # (Auto) 0.6 Eos # (Auto) 0.1 Baso # (Auto) 0.1 Abs Immat Gran (auto) 0.02 Absolute Neuts (auto) 6.1 Absolute Nucleated RBC 0.000 Nucleated RBC % (auto) 0.0 Sodium 141 Potassium 4.1 Chloride 109 H Carbon Dioxide 24 Anion Gap 12 BUN 10 Creatinine 1.13 Estim Creat Clear Calc 78.8 Estimated GFR > 60 Random Glucose 123 H Estimat Average Glucose Hemoglobin A1c % Lactic Acid 1.2 Calcium 9.7 Magnesium Total Bilirubin 0.5 Direct Bilirubin 0.1 AST 32 ALT 58 H Alkaline Phosphatase 81 Total Protein 7.7 Albumin 4.7 Triglycerides Cholesterol LDL Cholesterol, Calc HDL Cholesterol Lipase 32 TSH Urine Color Yellow Urine Appearance Cloudy Urine pH 5.5 Ur Specific [place] 1.020 Urine Protein 30 (1+) H Urine Glucose (UA) Negative Urine Ketones Trace Urine Blood Large (3+) H Urine Nitrite Negative Ur Leukocyte Esterase Trace H Urine RBC >20 H Urine WBC 0-5 Ur Squamous Epith Cells 3-5 Urine Bacteria None Seen Hyaline Casts >20 08/12/24 08/12/24 08/12/24 07:19 07:19 07:19 WBC 10.6 RBC 4.83 Hgb 14.1 Hct 40.8 L MCV 84.5 MCH 29.2 MCHC 34.6 RDW 13.2 Plt Count 244 MPV 10.4 Immature Gran % (Auto) Neut % (Auto) Lymph % (Auto) Wise % (Auto) Eos % (Auto) Baso % (Auto) Lymph # (Auto) Wise # (Auto) Eos # (Auto) Baso # (Auto) Abs Immat Gran (auto) Absolute Neuts (auto) Absolute Nucleated RBC 0.000 Nucleated RBC % (auto) 0.0 Sodium 140 Potassium 4.1 Chloride 110 H Carbon Dioxide 23 Anion Gap 11 L BUN 13 Creatinine 0.91 0.94 Estim Creat Clear Calc 97.9 94.7 Estimated GFR > 60 Random Glucose Estimat Average Glucose Hemoglobin A1c % Lactic Acid Calcium Magnesium Total Bilirubin Direct Bilirubin AST ALT Alkaline Phosphatase Total Protein Albumin Triglycerides Cholesterol LDL Cholesterol, Calc HDL Cholesterol Lipase TSH Urine Color Urine Appearance Urine pH Ur Specific [place] Urine Protein Urine Glucose (UA) Urine Ketones Urine Blood Urine Nitrite Ur Leukocyte Esterase Urine RBC Urine WBC Ur Squamous Epith Cells Urine Bacteria Hyaline Casts 08/12/24 07:19 WBC RBC Hgb Hct MCV MCH MCHC RDW Plt Count MPV Immature Gran % (Auto) Neut % (Auto) Lymph % (Auto) Wise % (Auto) Eos % (Auto) Baso % (Auto) Lymph # (Auto) Wise # (Auto) Eos # (Auto) Baso # (Auto) Abs Immat Gran (auto) Absolute Neuts (auto) Absolute Nucleated RBC Nucleated RBC % (auto) Sodium Potassium Chloride Carbon Dioxide Anion Gap BUN Creatinine Estim Creat Clear Calc Estimated GFR > 60 Random Glucose 107 Estimat Average Glucose 105 Hemoglobin A1c % 5.3 Lactic Acid Calcium 9.3 Magnesium 2.0 Total Bilirubin 0.6 Direct Bilirubin 0.2 AST 27 ALT 45 H Alkaline Phosphatase 67 Total Protein 6.6 Albumin 4.1 Triglycerides 139 Cholesterol 200 H LDL Cholesterol, Calc 137 H HDL Cholesterol 36 L Lipase TSH 0.66 Urine Color Urine Appearance Urine pH Ur Specific [place] Urine Protein Urine Glucose (UA) Urine Ketones Urine Blood Urine Nitrite Ur Leukocyte Esterase Urine RBC Urine WBC Ur Squamous Epith Cells Urine Bacteria Hyaline Casts Airway Mallampati Class: II TM Dist: >3cm Neck ROM: Full Denture: Upper and Lower Heart: rrr Lungs: cta Assessment and Plan Assessment Anesthesia Assessment: Anesthesia Plan Discussed and Chart Reviewed Final Anesthetic Review Family History of Problems with Anesthesia: No History of Problems with Anesthesia: No NPO: Yes ASA Class: II Final Preanesthetic Review: No Changes in Pt Med Stat, Meds/Allgs Chart Reviewed and Consent Obtained/Reviewed Patient Risk: Low Procedure Risk: Low Anesthetic Plan Anesthetic Plan: GA Disposition: Standard PACU
[2024-08-12] MEDS: Lactated Ringers 1,000 ML 80 ML IVCONT ×2 (08:59→20:29)
--- NOTE | 2024-08-12 09:10 | P.HPSUR_ITS ---
Pre-Procedural Eval Section A - 24 Hr Update-Section A only Date of Service: 08/12/24 The patient is an INPATIENT: Yes Changes since office visit: Yes Cold of Flu in the past 2 weeks, Yes New Medical Problems, Yes Changes in Medication and Yes Patient answered all questions The patient has been examined within 24 hours of the surgical procedure. The History & Physical has been completed within 30 days and I have reviewed it.: Yes Section B - Complete if H&P > 30 days Chief Complaint: abd pain, Osteomyelitis right thumb Allergies: Allergies Allergy/AdvReac Type Severity Reaction Status Date / Time No Known Allergies Allergy Verified 08/11/24 11:51 Exam Exam Comment: Patient's was seen and evaluated by me in preop hold. He has evidence of a chronic right thumb fungal nail infection, superimposed by a purulent infection involving the distal phalanx. The right thumb nail is brown and with a multi lobular chronically deformed appearance. There is a small amount of purulent drainage. The thumb itself in the pattern not particularly tender and he has active flexion extension at the IP and the MCP joints Radiographs: Three views of the patient's right hand show a bony abscess involving the right thumb distal phalanx. This consistent with osteomyelitis. Plan I have reviewed the history and physical and performed a pertinent physical examination on my patient. No changes have occurred unless specified. Assessment and plan: 1. Right thumb fungal nail deformity, chronic 2. Right thumb distal phalanx osteomyelitis , and bony abscess I educated the patient about this condition We discussed operative and non operative treatment options and I am recommending surgery The risks and benefits of operative treatment were discussed with the patient and the patient wishes to proceed with surgery. These risks include, but are n ot limited to risk of damage to blood vessels, nerves, tendons, infection, recurrence, incomplete relief of preoperative symptoms, persistent pain, possible need for further surgery and the risks associated with regional blocks and anesthesia. The plan is to take the patient to the operating room today for the following procedures: 1. Right thumb removal of nail plate 2. Right thumb I and D of bone and tissue All of the preoperative paperwork including the consent was filled out today. All the patient's questions were answered. Time Spent With Patient Time: Total time managing care of this patient today ____ minutes.
--- NOTE | 2024-08-12 09:15 | P.OP_ITS ---
Operative Note Operative Note Date of Service: 08/12/24 Narrative: Operative Note Narrative: Preop diagnosis: 1. Right thumb fungal nail deformity 2. 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 Right thumb distal phalanx I and D of osteomyelitis and bony abscess 2. Right thumb removal of nail plate 3. Right thumb nail bed debridement and biopsy Surgeon: Martina Sim MD Project Development Director: None Anesthesia: General Anesthesia Findings: significant deformity of not just the nail plate but of the underlying nail bed. Cortical deformity of the dorsal aspect of the distal phalanx beneath the nail with white cheesy material rather than true purulence. This material appeared to be more consistent with an epidermal inclusion cyst Implants: None Tourniquet time: 23 minutes EBL: 5.0 ml Specimen: Cultures taken from nail, and from bone separately for routine, AFB and fungus tissue from the nail bed sent for histopathology white cheesy material from within the distal phalanx also sent for histo pathology Drains: None Complications: None Disposition: Brought to the recovery room in stable condition Plan: Admit to floor for IV antibiotics Infectious disease consult for right thumb distal phalanx osteomyelitis if bone cultures come back positive. If bone cultures come back negative, then consider sending out with a 10 day course of oral antibiotics Wound check and dressing change tomorrow and then daily after that. Check cultures and adjust antibiotics accordingly check histopathology from both bone and the nail bed. Follow-up [facility] sometime next week for a wound check, radiographs, and to check cultures And histopathology Once wounds at the tip of the thumb and nail bed heal, we will need to start treating nail bed with a topical antifungal. It is certainly possible that he may have trouble with nail deformity or adherence after this condition. Indications: The patient is a 54 year old man with a chronic right thumb fungal nail infection, superimposed with a right thumb distal phalanx Deformity most consistent with osteomyelitis and bony abscess . The risks and benefits of operative treatment, including but not limited to risk of damage to blood vessels, nerves, tendons, infection, recurrence, persistent pain or numbness, incomplete resolution of preoperative symptoms, or need for further surgery were discussed with the patient and they wished to proceed with surgery. Procedure: Once consent was obtained patient was brought back to the operating suite and placed in the operating table in a supine position. Anesthesia was administered by the anesthesia team. IV antibiotics were given after cultures were obtained. A tourniquet was applied to the proximal aspect of the right upper extremity and the limb was prepped and draped in a standard surgical fashion. The limb was elevated exsanguinated with Esmarch bandage and the tourniquet inflated to 250 mm of mercury for a total tourniquet time of 23 minutes. Regarding the right thumb nail /nail bed, its appearance was 1 that was undulating and rather fungating. I 1st attempted to use a [place] elevator to get beneath this material in hopes of elevating a nail plate with the deformity caused by fungus. However, the more distal aspect of it was somewhat dried and broke off in some pieces. As I came more proximal it appeared that this was not most consistent with a nail plate with a fungus infection, but actually also involved the underlying nail bed. Some of the material including what appeared to be a piece of nail plate were sent for cultures including routine AFB and fungus. Some of the more affected the soft tissue nail bed was also sent for histopathology. There was a defect in the central aspect of the nail bed that extended down to the dorsal cortex of the distal phalanx. There was also a defect in the dorsal cortex of the distal phalanx. There is was some white cheesy material coming from the bone in this area. This did appear more consistent with a possible epidermal inclusion cyst rather than purulent material. To further address the bone I made an 8 mm transverse incision at the tip of the thumb using a 15. Blade. I then passed a 2 mm drill bit through the tip of the distal phalanx and into the shaft of the distal phalanx. The mini C-arm was used to assess position of the drill bit in relation to the bony defect. I then passed an approximately 4 mm drill bit through the tip of the distal phalanx and into the bony defect. Again this was observed on fluoroscopic images. The material from the bony defect was removed from both a drill bit, and using a curette. The curette was used to debride this part of the distal phalanx. This material was sent for both histopathology and for culture. The wound and bone were then copiously irrigated with normal saline using a 10 mL syringe with an Angiocath. At this point the tourniquet was deflated and hemostasis obtained with a brief period of local pressure A sterile dressing was then applied. The patient appears to have tolerated the procedure well and with no complications. All digits were well vascularized conclusion of the case.
[2024-08-12] MEDS: Ketorolac Tromethamine 30 MG/ML VIAL IVPUSH (10:52)
[2024-08-12] MEDS: oxyCODONE HCl Immed Release 5 MG TABLET PO (10:59)
--- NOTE | 2024-08-12 12:02 | P.PNIM_ITS ---
Subjective Subjective Date of Service: 08/12/24 Review of Systems Follow up finger osteo and fungal infection, hydronephrosis passed 3mm stone overnight to OR today for nail removal and cx Physical Exam 2 Vital Signs: Vital Signs: Last Vital Signs Temp 96.8 F 08/12/24 11:43 Pulse 56 08/12/24 11:43 Resp 16 08/12/24 11:43 BP 132/82 08/12/24 11:43 Pulse Ox 96 08/12/24 11:43 O2 Del Method Room Air 08/12/24 11:43 BMI result Body Mass Index 28.1 Appearing in no acute distress lung sounds are clear to auscultation heart regular rate rhythm, clear S1, S2 positive bowel sounds, abdomen is soft, nontender neuro patient is alert x3, no focal deficits admission image Objective Data Active Medications Acetaminophen (Acetaminophen 325 Mg Tablet) 650 mg PO Q6H PRN PRN Reason: Pain, Mild 1-3,fever,headache Calcium Carbonate (Calcium Carbonate 750 Mg Tab.Chew) 750 mg PO Q4H PRN PRN Reason: Heartburn Fentanyl (Fentanyl Citrate/Pf 100 Mcg/2 Ml Vial) 50 mcg IVPUSH Q5M PRN PRN Reason: Pain, Moderate to Severe (Pain Scale 4-10) Stop: 08/12/24 15:30 Haloperidol Lactate (Haloperidol Lactate 5 Mg/Ml Vial) 1 mg IVPUSH ONCE PRN PRN Reason: intractable nausea Stop: 08/12/24 15:30 Heparin Sodium (Porcine) (Heparin Sodium,Porcine 5,000 Unit/Ml Vial) 5,000 unit SUBCUT Q12H [facility] Last Admin: 08/12/24 03:45 Dose: Not Given Documented By: ADDY Non-Admin Reason: Patient Refused Vancomycin HCl 750 mg/ Sodium (Chloride) 265 mls @ 265 mls/hr IV Q12H [facility] Last Infusion: 08/12/24 02:23 Dose: Infused Documented By: ADDY Lactated Ringer's (Lr) 1,000 mls @ 80 mls/hr IVCONT .[id number] [facility] Last Admin: 08/12/24 08:59 Dose: 80 mls/hr Documented By: ANTWON Ketorolac Tromethamine (Ketorolac Tromethamine 30 Mg/Ml Vial) 30 mg IVPUSH Q6H PRN PRN Reason: Pain, Mild (Pain Scale 1-3) Last Admin: 08/12/24 10:52 Dose: 30 mg Documented By: DANGELLes Lorazepam (Lorazepam 0.5 Mg Tablet) 0.5 mg PO Q8H PRN PRN Reason: Anxiety Magnesium Hydroxide (Milk Of Magnesia 30 Ml Oral.Susp) 30 ml PO DAILY PRN PRN Reason: Constipation Melatonin (Melatonin 3 Mg Tablet) 6 mg PO BEDTIME PRN PRN Reason: Insomnia Morphine Sulfate (Morphine Sulfate 2 Mg/Ml Cartridge) 1 mg IVPUSH Q6H PRN; Protocol PRN Reason: Pain, Severe (Pain Scale 7-10) Last Admin: 08/11/24 18:28 Dose: 1 mg Documented By: TREY Naloxone HCl (Naloxone Hcl 0.4 Mg/Ml Vial) 0.04 mg IVPUSH Q5M PRN PRN Reason: Excessive sedation or RR < 8 Ondansetron HCl (Ondansetron Hcl 4 Mg/2 Ml Vial) 4 mg IVPUSH Q8H PRN PRN Reason: Nausea and Vomiting Oxycodone HCl (Oxycodone Hcl Immed Release 5 Mg Tablet) 5 mg PO Q6H PRN PRN Reason: Pain, Moderate(Pain Scale 4-6) Pharmacy Consult (Consult Rx Vancomycin Dosing) 1 each MISCELLANE DAILY PRN PRN Reason: Consult order Prednisone (Prednisone 20 Mg Tablet) 20 mg PO DAILY [facility] Last Admin: 08/12/24 08:23 Dose: 20 mg Documented By: NIRMAL Sodium Chloride (0.9 % Sodium Chloride Flush 3 Ml Syringe) [facility] Admin: 08/12/24 08:25 Dose: 3 ml Documented By: NIRMAL Tamsulosin HCl (Tamsulosin Hcl 0.4 Mg Capsule) 0.4 mg PO BEDTIME [facility] Last Admin: 08/11/24 21:18 Dose: 0.4 mg Documented By: MINDALANDV Labs 08/12/24 07:19 08/12/24 07:19 Labs: Laboratory Results - last 24 hr 08/11/24 08/11/24 08/11/24 12:19 13:56 14:58 MCV 83.3 MCH 28.8 MCHC 34.6 RDW 13.3 Plt Count 262 MPV 9.5 Immature Gran % (Auto) 0.2 Neut % (Auto) 72.9 Lymph % (Auto) 18.1 L [place] % (Auto) 7.4 Eos % (Auto) 0.7 Baso % (Auto) 0.7 Lymph # (Auto) 1.5 [place] # (Auto) 0.6 Eos # (Auto) 0.1 Baso # (Auto) 0.1 Abs Immat Gran (auto) 0.02 Absolute Neuts (auto) 6.1 Absolute Nucleated RBC 0.000 Nucleated RBC % (auto) 0.0 Anion Gap 12 Estim Creat Clear Calc 78.8 Estimated GFR > 60 Random Glucose 123 H Estimat Average Glucose Hemoglobin A1c % Lactic Acid 1.2 Calcium 9.7 Magnesium Total Bilirubin 0.5 Direct Bilirubin 0.1 AST 32 ALT 58 H Alkaline Phosphatase 81 Total Protein 7.7 Albumin 4.7 Triglycerides Cholesterol LDL Cholesterol, Calc HDL Cholesterol Lipase 32 TSH Urine Color Yellow Urine Appearance Cloudy Urine pH 5.5 Ur Specific [place] 1.020 Urine Protein 30 (1+) H Urine Glucose (UA) Negative Urine Ketones Trace Urine Blood Large (3+) H Urine Nitrite Negative Ur Leukocyte Esterase Trace H Urine RBC >20 H Urine WBC 0-5 Ur Squamous Epith Cells 3-5 Urine Bacteria None Seen Hyaline Casts >20 08/12/24 08/12/24 08/12/24 07:19 07:19 07:19 MCV 84.5 MCH 29.2 MCHC 34.6 RDW 13.2 Plt Count 244 MPV 10.4 Immature Gran % (Auto) Neut % (Auto) Lymph % (Auto) [place] % (Auto) Eos % (Auto) Baso % (Auto) Lymph # (Auto) [place] # (Auto) Eos # (Auto) Baso # (Auto) Abs Immat Gran (auto) Absolute Neuts (auto) Absolute Nucleated RBC 0.000 Nucleated RBC % (auto) 0.0 Anion Gap 11 L Estim Creat Clear Calc 97.9 94.7 Estimated GFR > 60 > 60 Random Glucose 107 Estimat Average Glucose 105 Hemoglobin A1c % 5.3 Lactic Acid Calcium 9.3 Magnesium 2.0 Total Bilirubin 0.6 Direct Bilirubin 0.2 AST 27 ALT 45 H Alkaline Phosphatase 67 Total Protein 6.6 Albumin 4.1 Triglycerides 139 Cholesterol 200 H LDL Cholesterol, Calc 137 H HDL Cholesterol 36 L Lipase TSH 0.66 Urine Color Urine Appearance Urine pH Ur Specific [place] Urine Protein Urine Glucose (UA) Urine Ketones Urine Blood Urine Nitrite Ur Leukocyte Esterase Urine RBC Urine WBC Ur Squamous Epith Cells Urine Bacteria Hyaline Casts Assessment and Plan (1) Calculus of kidney: Status: Acute (2) Osteomyelitis: Status: Acute Plan 54 year old man admitted with thumb osteomyelitis and hydronephrosis Osteomyelitis hand x-ray showing 5th distal phalanx suggestive of osteomyelitis/Kyle's abscess IV Vancomycin ID consult pending pain management as needed orthopedic surgery >to OR today, right thumb removal of nail plate right thumb nail bed debridement and biopsy, culture sent, if bone culture negative will likely need 10 day course of oral antibiotics Abdominal pain secondary to renal calculi urinating fine Abdominal CT showing left UVJ 3 mm calculus causing mild left hydronephrosis and hydroureter Urology consultation> Flomax and prednisone added 3 mm calculus expelled overnight Finger nail fungus will discuss with ID rec ferry terminal agent treatment Overweight. BMI 28.1 Weight management DVT prophylaxis with heparin Full code Quality Stroke Does the patient have a stroke diagnosis?: No VTE Prior VTE?: No VTE Risk Level:: Medical - moderate - high VTE Device Contraindication: Treatment Not Indicated VTE Drug Contraindication: N/A - Med Ordered
[2024-08-12 12:33] LABS: Vancomycin Random 8.4 mcg/mL (15-20)
[2024-08-12] MEDS: vancomycin HCL 1,250 MG in 0.9 % Sodium Chloride 250 ML 166.67 MG IV (13:53)
--- NOTE | 2024-08-12 15:19 | MHC.CM.PN ---
PATIENT LIVES IN AN APT W/ S.O. FUNCTIONALLY INDEPENDENT. DENIES USE OF DME OR SERVICES. NO PCP. BROCHURE PROVIDED. NO HCP. CM PROVIDED EDUCATION AND OFFERED ASSISTANCE. PATIENT DECLINED. DP: ? NEED FOR IV ABX, ID CONSULT PENDING. REFERRAL TO [facility], WOULD ALSO NEED SN NO PCP FOR [facility]. S.O. CAN ASSIST W/ WOUND CARE IF NEEDED. SELF TRANSPORT. CM WILL CONTINUE TO FOLLOW.
[2024-08-12] MEDS: Tamsulosin HCL 0.4 MG CAPSULE PO (20:29)
--- NOTE | 2024-08-12 21:00 | PC.NURSE ---
pt expressing desire to leave and go home to wait for culture results, pt encouraged to stay and awaiting Culture results, and educated on the importance of these cultures. pt agreed to stay another day, and wait for results.
[2024-08-13] MEDS: vancomycin HCL 1,250 MG in 0.9 % Sodium Chloride 250 ML 166.67 MG IV (01:01)
--- NOTE | 2024-08-13 02:40 | PC.NURSE ---
pt is refusing IVF at this time. States I'am going to the bathroom every ten minutes.
[2024-08-13 05:48] VITALS: BP 109/59; PULSE 53; RESP 16; TEMP 37.2; O2SAT 96
[2024-08-13 06:41] LABS: Creatinine Clr Calc Pharmacy 104.8; Estimated Glomerular Filt Rate > 60
[2024-08-13 07:40] VITALS: BP 129/70; PULSE 63; RESP 18; TEMP 36.8; O2SAT 96
--- NOTE | 2024-08-13 08:54 | P.CDIM_ITS ---
PROVIDER RESPONSE TEXT: To clarify, the appropriate diagnosis supported by the clinical indicators: Excisional debridement: There was a small piece of nail plate proximally which was removed and placed on the back table. The irregularly shaped nail bed was sharply debrided using a 15. Blade and tenotomy scissors and also quique shonda on the back table to be sent for histopathology. After drilling into the tip of the distal phalanx I then placed a body cu rette into the bone to scrape and debride the inside of the bone, removing the white cheesy material which was also removed and placed on the back table to be sent for histopathology. A curette was also used on the bony defect in the dorsal aspect of the distal phalanx. The wound and bone were all copiously irrigated with normal saline. QUERY TEXT: PHYSICIAN'S DOCUMENTATION REQUEST Date of Query: 08/13/2024 08:15 AM EDT Patient Name: Michelet Curry Admit Date: 08/11/2024 Dear Martina Sim MD, A review of the medical record indicates additional documentation may be needed. Please review below and update the documentation accordingly. Clinical Indicators: Op note dated 08/12/24 - Right thumb nail bed debridement and biopsy. Findings: Significant deformity of not just nail plate but of the underlying nail bed. Cortical deformity of the dorsal aspect of the distal phalanx beneath the nail with white cheesy mate rial rather than purulence. Cultures taken from nail, and from bone separately, AFB and fungus tissue from the nail bed sent for histopathology. Could you provide, in the Progress Notes, further clarification regarding the type and nature of the debridement? Excisional debridement Please also address the Type of instrument used, What was excised, Depth of debridement, and Size and appearance of the wound as able Non-excisional debridement Please also address the Depth of debridement, and Size and appearance of the wound as able Other (explain) Clinically unable to determine (explain) Thank you, Angi Curtis, CCS, CDIS Use of terms such as suspected, likely, concern for, or probable (associated with a specific diagnosi s that is being evaluated, monitored, or treated as if it exists) are acceptable and can be coded in the inpatient se tting, when documented at the time of discharge. Please use your independent medical judgment in providing your response. THIS QUERY IS PART OF THE PERMANENT MEDICAL RECORD
[2024-08-13] MEDS: predniSONE 20 MG TABLET PO (09:01)
--- NOTE | 2024-08-13 09:41 | PM.PNORT ---
Subjective Subjective Date of Service: 08/13/24 Interval history: Postop day 1 status post I&D and nail bed removal of right thumb Patient resting comfortably in bed this morning Pain well managed No acute events overnight No other acute complaints or concerns at this time Physical Exam Vital Signs: Vital Signs: Last Vital Signs Temp 98.3 F 08/13/24 07:40 Pulse 63 08/13/24 07:40 Resp 18 08/13/24 07:40 BP 129/70 08/13/24 07:40 Pulse Ox 96 08/13/24 07:40 O2 Del Method Room Air 08/13/24 07:40 BMI result Body Mass Index 28.1 Extrem: Other: Patient is alert, oriented, and in no acute distress. Neuro: Normal sensation of the tips of all digits of the right hand at this time Vascular: Cap refill brisk Pain: Pain in the right thumb when dressing is removed ROM: patient was able to make a full closed fist and extend all other digits of the right hand fully and without difficulty Skin: Nail bed status post excision noted on the right thumb No active drainage at this time No purulence noted Psych: Appears grossly normal Affect normal Attitude cooperative Procedures Date of Service Date of Service: 08/13/24 Progress Note: A&P Assessment and plan (1) Infection of nail bed of finger of right hand: Status: Acute Plan 1. Status post I&D and nail bed removal of right thumb DOS 08/12/2024 Patient appears to be recovering well postoperatively Patient is educated about the typical recovery course At this time, patient was informed that we are awaiting the results of the cultures to be able to target his antibiotic therapy, as well as to identify if there was any active infection in the bone of his right thumb Dressings changed without issue Continue with all other recommendations per Medicine Time Spent With Patient Time: Total time managing care of this patient today ____ minutes. Quality Stroke Does the patient have a stroke diagnosis?: No VTE Prior VTE?: No VTE Risk Level:: Medical - moderate - high VTE Device Contraindication: Treatment Not Indicated VTE Drug Contraindication: N/A - Med Ordered
--- NOTE | 2024-08-13 09:48 | HO.POSTANES ---
Post Anesthesia Evaluation Post Anesthesia Evaluation Date of Service: 08/13/24 Vital Signs: Vital Signs Temp Pulse Resp BP Pulse Ox O2 Del Method 08/13/24 07:40 98.3 F 63 18 129/70 96 Room Air 08/13/24 05:48 99 F 53 16 109/59 L 96 Room Air Anesthesia: General Mental Status: Awake Pain Control: Satisfactory Nausea/Vomiting: None Hydration: Adequate Anesthesia-Related Issues: No Anes. Related Issues
--- NOTE | 2024-08-13 10:57 | P.DS_ITS ---
DS: Providers Provider Date of Service: 08/13/24 Date of admission: 08/11/24 15:01 Date of discharge: 08/13/24 Primary care physician: None Physician Consults: 08/11/24 14:53 Consult to Orthopedics Routine Consulting Provider: [facility] [place] [facility] Reason for consultation: Osteomyelitis /Kyle's abscess to 5th distal phalanx 08/11/24 14:54 Consult to Urology Routine Consulting Provider: [facility] [place] Urology Services Reason for consultation: UVJ stone with mild hydronephrosis 08/11/24 21:09 Consult to Wound Care Routine Reason for consultation: R thumb, fungal infection, Possible osteomylitis? DS: Diagnosis Discharge Diagnosis (1) Infection of nail bed of finger of right hand: Status: Acute DS: Summary Hospital Course Hospital Course: 54 year old man presenting with left flank pain. He reported having left flank pain with no other associated symptoms. Abd CT showed Left UVJ 3 mm calculus causes mild left hydronephrosis and hydroureter. incidentally his left thumb had what appeared to be a fungal infection and patient reported a hx of fungal infections fingernails of both hands. He reported that his right thumb would get worse and would heal. He reported symptoms for about a year of and on. Hand xray showed Lucency within the distal aspect of the 5th distal phalanx suggestive of osteomyelitis/Kyle's abscess. Labs WNL, vital signs stable. He was given a dose of vancomycin, ativan and toradol. He will be admitted for treatment of osteomyelitis and Hydronephrosis 54-year-old man treated initially for osteomyelitis of 5th distal phalanx. Started on IV vancomycin. Seen and evaluated by Orthopedic surgery and status post right thumb nail removal, right thumb nail bed debridement and biopsy with culture sent. Discussed with pathology today over the phone (Dr. Hurd) and early path report suggests squamous cell carcinoma rather than osteomyelitis (final path report has not posted. The plan will be for patient to follow up with Orthopedic surgery for possible suggestions of treatment. He was also to follow up with his primary care provider as well. He was sent home to complete a total of 10 days of antibiotics. He also presented with abdominal pain secondary to renal calculi. Abdominal CT showed left UVJ with 3 mm calculus causing mild left hydronephrosis and hydroureter. He was treated with Flomax and prednisone. He expelled a 3 mm calculus on 08/11/2024. Finger nail fungus, patient should follow up with his primary care provider for long-term treatment of this. Overweight. BMI 28.1Weight management Time Attestation Discharge Coordination Time (in mins): 46 Quality: Safe Use of Opioids Does Pt have an Active Cancer Diagnosis on the Problem List?: No Quality: Stroke Does the patient have a stroke diagnosis?: No Physical Exam 2 Vital Signs: Vital Signs: Last Vital Signs Temp 98.3 F 08/13/24 07:40 Pulse 63 08/13/24 07:40 Resp 18 08/13/24 07:40 BP 129/70 08/13/24 07:40 Pulse Ox 96 08/13/24 07:40 O2 Del Method Room Air 08/13/24 07:40 BMI result Body Mass Index 28.1 Appearing in no acute distress head is normocephalic atraumatic eyes pupils are PERRLA sclera is anicteric mouth throat mucous membranes are intact and moist neck is supple no lymphadenopathy, no JVD noted lung sounds are clear to auscultation heart regular rate rhythm, clear S1, S2 positive bowel sounds, abdomen is soft, nontender neuro patient is alert x3, no focal deficits Dressing in place to thumb Admission photo DS: Data Data Completed and Pending Pending studies at discharge: Pending at discharge 08/12/24 10:26 Surgical [PTH] Routine Labs on day of discharge: Laboratory Results - last 24 hr 08/12/24 08/13/24 12:05 06:01 Hold Purple Top SEE NOTE Creatinine 0.85 Estim Creat Clear Calc 104.8 Estimated GFR > 60 Random Vancomycin 8.4 L Preliminary micro results at discharge 08/12/24 Unknown Routine Culture - Preliminary Thumb Culture in progress. Anaerobic Culture - Preliminary Culture in progress. 08/12/24 Unknown Routine Culture - Preliminary Thumb Culture in progress. Anaerobic Culture - Preliminary Culture in progress. 08/11/24 13:56 Blood Culture - Preliminary Blood - Venous No growth after 24 hours. 08/11/24 13:56 Blood Culture - Preliminary Blood - Venous No growth after 24 hours. Discharge Plan Discharge Anticipated Discharge Date/Time: 08/13/24 10:50 Patient Disposition: Home, Self-Care Discharge Diagnosis: Renal calculi, hydronephrosis Fingernail fungus Early pathology showing squamous cell to 5th distal phalanx Referrals: Martina Sim MD [Physician] - 1 Week (08/20/24 08:45 [facility] [place] [facility] Surgeons Martina Sim MD ) Discharge Medications: New doxycycline hyclate 100 mg tablet 100 mg PO BID Qty: 10 0RF Discharge Orders: Discharge Order (Routine); Ordered 08/13/24 Ordered By: Mayelin Del Cid Diet: Advance to usual diet Activity on Discharge: As tolerated Stand Alone Forms: Patient Portal Discharge page Print Language: Tajik Activity Restrictions/Additional Instructions: Dressing changes every 2 days Gauze, Marilyn wrap, Zan bandage/Coban Keep dressing clean, dry, between dressing changes Do not get right hand wet until follow-up Care Plan Goals: Follow up with primary care provider for further workup of possible squamous cell to 5th distal phalanx Follow up with Orthopedic surgery at scheduled appointment Health Concerns: Renal calculi, hydronephrosis Fingernail fungus Early pathology showing squamous cell to 5th distal phalanx Plan of Treatment: Follow-up with primary care provider as needed Take all medications as prescribed Assessment: See discharge summary Discharge Date/Time: 08/13/24 11:27
[2024-08-13 11:12] VITALS: BP 135/80; PULSE 68; RESP 18; TEMP 37.2; O2SAT 96
--- NOTE | 2024-08-13 11:17 | MHC.CM.PN ---
Patient medically cleared for dc home self care via private transport.
--- NOTE | 2024-08-14 10:35 | P.CDIM_ITS ---
PROVIDER RESPONSE TEXT: To clarify, the appropriate diagnosis supported by the clinical indicators: Other (explain): no osteo QUERY TEXT: PHYSICIAN'S DOCUMENTATION REQUEST Date of Query: 08/13/2024 11:27 AM EDT Patient Name: Michelet Curry Admit Date: 08/11/2024 Dear Mayelin Del Cid CHYRON OPERATOR, A review of the medical record indicates additional documentation may be needed. Please review below and update the documentation accordingly. Clinical Indicators: Progress notes within the Plan - Osteomyelitis Hand x-ray showing 5th distal phalanx suggestive of osteomyelitis/Kyle's abscess. IV Vancomycin Based on the above, please clarify in the Progress Notes further specificity regarding the acuity of the Osteomyelitis. Acute osteomyelitis Subacute osteomyelitis Chronic osteomyelitis Chronic multifocal osteomyelitis Other (explain) Clinically unable to determine (explain) Thank you, Angi Curtis, CCS, CDIS Use of terms such as suspected, likely, concern for, or probable (associated with a specific diagnosi s that is being evaluated, monitored, or treated as if it exists) are acceptable and can be coded in the inpatient se tting, when documented at the time of discharge. Please use your independent medical judgment in providing your response. THIS QUERY IS PART OF THE PERMANENT MEDICAL RECORD
== END 2024-08-13 11:27 | disposition home or self-care (01) | DRG 364 ==
LOC: HO.ED 13:46 → HO.EDOVER 15:19 → HO.S3 19:50
PROVIDERS: Nurse Practitioner Family; Orthopaedic Surgery; Admitting Provider Nurse Practitioner Acute Care; Emergency Provider Internal Medicine; Visit Provider Nurse Practitioner Acute Care
PROC: 0PBR0ZZ Excision of Right Thumb Phalanx, Open Approach (ICD-10-PCS; principal; 2024-08-12 09:00)
DX: D04.61 Carcinoma in situ of skin of right upper limb, including shoulder (principal); B35.1 Tinea unguium; E66.3 Overweight; F17.210 Nicotine dependence, cigarettes, uncomplicated; N13.2 Hydronephrosis with renal and ureteral calculous obstruction; Z71.6 Tobacco abuse counseling; Z71.3 Dietary counseling and surveillance; Z68.28 Body mass index [BMI] 28.0-28.9, adult
CPT/HCPCS: 36415; 73120; 74176; 80048; 80061; 80076; 80202; 81001; 82565; 83036; 83605; 83690; 83735; 84443; 85025; 85027; 87040; 87070; 87073; 87101; 87116; 87147; 87205; 87206; 87220; 88304; 88305; 88307; 88311; 99285; J0690; J1100; J1644; J1885; J2003; J2060; J2250; J2270; J2405; J2704; J3010; J3370; J3371; J7120

== ENCOUNTER → 2024-08-11 12:26 | Outpatient (BNV) | payer OTHER, SELFPAY | PROVIDERS: Emergency Provider Internal Medicine; Visit Provider Radiology Diagnostic Radiology | DX: N20.1 Calculus of ureter (principal); M86.141 Other acute osteomyelitis, right hand | CPT/HCPCS: 73120; 74176 ==

== ENCOUNTER → 2024-08-11 15:01 | Outpatient (BNV) | payer OTHER, SELFPAY | PROVIDERS: Admitting Provider Nurse Practitioner Acute Care; Emergency Provider Internal Medicine; Visit Provider Nurse Practitioner Acute Care | DX: L03.011 Cellulitis of right finger (principal) | CPT/HCPCS: 99232; 99239 ==

== ENCOUNTER → 2024-08-11 15:01 | Outpatient (BNV) | payer OTHER, SELFPAY | PROVIDERS: Admitting Provider Nurse Practitioner Acute Care; Emergency Provider Internal Medicine; Visit Provider Urology | DX: N13.2 Hydronephrosis with renal and ureteral calculous obstruction (principal) | CPT/HCPCS: 99222 ==

== ENCOUNTER → 2024-08-11 15:01 | Outpatient (BNV) | payer OTHER, SELFPAY | PROVIDERS: Admitting Provider Nurse Practitioner Acute Care; Emergency Provider Internal Medicine | DX: M86.9 Osteomyelitis, unspecified (principal); L03.011 Cellulitis of right finger | CPT/HCPCS: 99223 ==

== ENCOUNTER 2024-08-20 08:26 | Outpatient (AMB) | payer OTHER, SELFPAY ==
--- NOTE | 2024-08-20 08:32 | MHC.OFFVIS ---
Vital Signs 08/20/24 08:45 Height 5 ft 7 in Weight 189 lb BMI 29.6 Intake Visit Reasons: PO I&D and nail bed removal of R thumb 08/12/24 AR Intake Note: Michelet 54 yr old left hand dominant male presents today for his PO visit for his right thumb S/P I&D and nail bed removal of R thumb 08/12/24 AR. States he has/had nail fungus for many years, states his thumb nail was black and would bleed every time he bangs it against an object. States this would cause him pain and since surgery his thumb has had a little numbness but feels its getting better. 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 He has tried a lot of treatment OTC and nothing has worked. He has completed his ABX. Allergies No Known Allergies Allergy (Verified 08/20/24 08:42) HPI HPI PO I&D and nail bed removal of R thumb 08/12/24 AR: Details: Michelet is a 54 year old right hand dominant man who presents for a wound check, S/P right thumb I&D, naibed debridement & nail plate removal, DOS: 08/12/24. He says he is doing better. He has some mild numbness to the tip of his thumb which was not present prior to surgery, but this is tolerable. He has completed his course of Abx. He says he is very happy with his current treatment and results of his surgery, he was happy he was able to receive help. 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 He smokes Marijuana. 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 Review of Systems Const All systems reviewed & are unremarkable except as noted in HPI and below Physical Exam Vital Signs: BMI result Body Mass Index 29.6 Const General: no acute distress and alert Orientation/consciousness: patient oriented x3 HEENT Head: Yes normocephalic and Yes atraumatic Eyes EOM: EOMs intact bilaterally Resp Effort & Inspection: normal respiratory effort and able to speak in complete sentences Cardio Jugular venous distension: no JVD Skin General skin exam: turgor normal Rashes: no rashes Neuro General: patient oriented x3 Extrem Other: The patient was alert oriented and in no acute distress He is somewhat tearful today in clinic. He said he has not used to people taking care of him. He is happy with the appearance of his thumb The wounds at the tip of the thumb and in the nail bed appeared to be healing. There is some dried blood but minimal serosanguineous drainage. Good active flexion and extension at the MCP and IP joints. Cap refill brisk and sensation intact to the pad of the thumb. Pathology report 08/12/24 Diagnosis A. Bone, right thumb, distal phalanx, biopsy: Squamous cell carcinoma, moderately differentiated, involving bone; negative for osteomyelitis. B. Skin, right thumb, biopsy: Invasive squamous cell carcinoma, moderately differentiated. Gram stain Final 08/12/24-1325 Gram stain results: No polys 3+ epithelial cells 3+ Gram-positive cocci Routine Culture Final 08/14/24-1508 Organism 1 Strep agalactiae (Grp B) Quantity 2+ Susc N/A Susceptibility not routinely performed on this isolate. Organism 2 Corynebacterium species Quantity 3+ Susc N/A Susceptibility not routinely performed on this isolate. Anaerobic Culture Final 08/17/24-1333 Report Mixed anaerobic noah. No Bacteroides or Clostridium species isolated. Fungus Cult Hair/Skin/Nail Preliminary 08/19/24-1447 08/19/24 No fungi isolated to date. Culture is examined weekly for a total of 28 days incubation. A change in status will result in an updated culture report. Acid-Fast Smear Final 08/15/24-1425 Acid-Fast Smear No acid-fast bacilli seen. 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 phal. Code(s): C79.51 - Secondary malignant neoplasm of bone Category: Medical (4) Fungal infection of nail: Comment: R MF, L MF, L SF Code(s): B35.1 - Tinea unguium Category: Medical Plan Assessment & Plan: 1. Right thumb nailbed invasive squamous cell carcinoma S/P removal of nail plate & nailbed debridement and biopsy 2. Right thumb infection Grew out Corynebacterium and group B strep 3. Right thumb distal phalanx squamous cell carcinoma , S/P I&D him biopsy DOS: 08/12/24 Negative for Osteomyelitis 4. Several bilateral hand nails with visible fungal infections Visibly darkened R MF, L MF, L SF We will discuss treatment for these when we have addressed his carcinoma The patient appears to be doing well post-operatively, and he is happy with the appearance of his thumb compared to prior. I educated him about the post-operative course & his pathology. I had a long discussion with him and I am recommending a right thumb distal phalanx amputation, including the risks and benefits. He expressed understanding. He will speak with Mohini, our nurse, concerning a referral to our Oncology department for further assessment & possible treatment of his Carcinoma, and to assess if this has spread systemically. ?I ordered another 5 day course of Doxycycline, to bring treatment to at least 10 days..? I explained the effects of smoking on wound/bone healing The patient would like to proceed with surgery The risks and benefits of operative treatment were discussed with the patient and the patient wishes to proceed with surgery. These risks include, but are not limited to risk of damage to blood vessels, nerves, tendons, infection, recurrence, incomplete relief of preoperative symptoms, persistent pain, possible need for further surgery and the risks associated with regional blocks and anesthesia. The plan is to take the patient to the operating room sometime in the next 2 weeks for the following procedures: 1. Right thumb IP joint level amputation for cancer, under general All of the preoperative paperwork including the consent was reviewed today. All the patient's questions were answered. The patient understands that they will be contacted by our staff developer soon to schedule this procedure He denies Diabetes, blood thinners, asthma, heart, lung issues He has kidney stones Please note that greater than 45 minutes was spent with this patient going over the history, evaluating the patient and radiographs, formulating possible treatment options, discussing them with the patient, and documenting the visit. Scribed for Martina Sim MD by Jim Perera clinical medical transcriptionist, on 08/20/24 at 9:00 AM, EST. 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
[2024-08-20 08:45] VITALS: BMI 29.6
== END 2024-08-20 09:47 | disposition home or self-care (01) ==
LOC: HO.HOS 08:26
PROVIDERS: Visit Provider Orthopaedic Surgery
DX: C44.622 Squamous cell carcinoma of skin of right upper limb, including shoulder (principal); L03.011 Cellulitis of right finger; C79.51 Secondary malignant neoplasm of bone; B35.1 Tinea unguium
CPT/HCPCS: 99024

== ENCOUNTER → 2024-08-20 08:26 | Outpatient (BNVA) | payer OTHER, SELFPAY | PROVIDERS: Visit Provider Orthopaedic Surgery | DX: Z48.3 Aftercare following surgery for neoplasm (principal); C44.622 Squamous cell carcinoma of skin of right upper limb, including shoulder; C79.51 Secondary malignant neoplasm of bone; L03.011 Cellulitis of right finger; B35.1 Tinea unguium; Z98.890 Other specified postprocedural states | CPT/HCPCS: 99212 ==

== ENCOUNTER 2024-08-22 05:44 | Day surgery (SDC) | payer OTHER, SELFPAY ==
--- NOTE | 2024-08-20 12:10 | HO.ANESPROP2 ---
HPI - Anesthesia Eval Consult details Narrative: 54yo M for Thumb interphalangeal [place] [facility] [place] 54-year-old man treated initially for osteomyelitis of 5th distal phalanx. Started on IV vancomycin. Seen and evaluated by Orthopedic surgery and status post right thumb nail removal, right thumb nail bed debridement and biopsy with culture sent. Discussed with pathology today over the phone (Dr. Hurd) and early path report suggests squamous cell carcinoma rather than osteomyelitis (final path report has not posted. The plan will be for patient to follow up with Orthopedic surgery for possible suggestions of treatment. He was also to follow up with his primary care provider as well. He was sent home to complete a total of 10 days of antibiotics. He also presented with abdominal pain secondary to renal calculi. Abdominal CT showed left UVJ with 3 mm calculus causing mild left hydronephrosis and hydroureter. He was treated with Flomax and prednisone. He expelled a 3 mm calculus on 08/11/2024. 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 (Acute) Fungal infection of nail (Acute) Infection of nail bed of finger of right hand (Acute) Hydronephrosis concurrent with and due to calculi of kidney and ureter (Acute) Calculus of kidney (Acute) Osteomyelitis (Acute) Past Medical History Medical History (Updated 08/20/24 @ 09:46 by Jim Perera) No pertinent past medical history Family History Family history of problems with anesthesia: No Surgical History Surgical History No pertinent past surgical history History of Problems with Anesthesia: No Social History Social History (Updated 08/20/24 @ 08:45 by VIRGINIA Liang) Household Members: Significant Other and Children Housing: Apartment Unable to assess alcohol history related to: Unknown Patient Tobacco Use Status: Current everyday Tobacco user e-Cigarette/Vaping Use: Currently Using Second Hand Smoke Exposure: No Substance Use Type: Marijuana service: No Current occupational status: employed 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
[2024-08-22 06:19] VITALS: BMI 28.3
[2024-08-22 06:36] VITALS: BP 130/81; PULSE 58; RESP 16; TEMP 36.6; O2SAT 96
[2024-08-22] MEDS: Lactated Ringers 1,000 ML 100 ML IVCONT (06:49)
--- NOTE | 2024-08-22 07:31 | HO.ANESPROP2 ---
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 (Acute) Fungal infection of nail (Acute) Past Medical History Medical History Kidney stones Functional capacity: independent ambulation Family History Family history of problems with anesthesia: No Surgical History Surgical History History of thumb surgery Hx of tonsillectomy History of Problems with Anesthesia: No Social History Social History Household Members: Significant Other and Children Housing: Apartment Unable to assess alcohol history related to: Unknown Patient Tobacco Use Status: Current everyday Tobacco user e-Cigarette/Vaping Use: Currently Using Second Hand Smoke Exposure: No Use of substances other than those prescribed or required for medical reasons: Yes Substance Use Type: Marijuana Advance Directives: No Advance Directives Information Provided: Yes Poor oral hygiene: No service: No Current occupational status: employed 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 Meds Allergies Allergy/AdvReac Type Severity Reaction Status Date / Time No Known Allergies Allergy Verified 08/20/24 08:42 Active Medications: Current Medications Lactated Ringer's (Lr) 1,000 mls @ 100 mls/hr IVCONT .Q10H CR Last Admin: 08/22/24 06:49 Dose: 100 mls/hr Exam Height,Weight and Vital Signs: Height 5 ft 8 in Weight 84.3 kg Last Vital Signs Temp 97.9 F 08/22/24 06:36 Pulse 58 08/22/24 06:36 Resp 16 08/22/24 06:36 BP 130/81 08/22/24 06:36 Pulse Ox 96 08/22/24 06:36 O2 Del Method Room Air 08/22/24 06:36 Airway Mallampati Class: II TM Dist: >3cm Neck ROM: Full Heart: RRR Lungs: CTA Assessment and Plan Assessment Anesthesia Assessment: Anesthesia Plan Discussed and Smoking Cess. Discussed Final Anesthetic Review Family History of Problems with Anesthesia: No History of Problems with Anesthesia: No NPO: Yes ASA Class: II Final Preanesthetic Review: Meds/Allgs Chart Reviewed, Consent Obtained/Reviewed and Anes Risks/Benef Reviewed Patient Risk: Low Procedure Risk: Low Anesthetic Plan Anesthetic Plan: GA Disposition: Standard PACU
--- NOTE | 2024-08-22 07:40 | MHC.SHP ---
Pre-Procedural Eval Section A - 24 Hr Update-Section A only Date of Service: 08/22/24 The patient is an INPATIENT: No Changes since office visit: No Cold of Flu in the past 2 weeks, No New Medical Problems, No Changes in Medication and No Patient answered all questions The patient has been examined within 24 hours of the surgical procedure. The History & Physical has been completed within 30 days and I have reviewed it.: Yes Section B - Complete if H&P > 30 days Chief Complaint: Squamous cell carcinoma of skin of right upper garcia Allergies: Allergies Allergy/AdvReac Type Severity Reaction Status Date / Time No Known Allergies Allergy Verified 08/20/24 08:42 Plan I have reviewed the history and physical and performed a pertinent physical examination on my patient. No changes have occurred unless specified. Time Spent With Patient Time: Total time managing care of this patient today ____ minutes.
--- NOTE | 2024-08-22 07:41 | W.PM.OPN ---
Operative Note Operative Note Date of Service: 08/22/24 Narrative: Operative Note Narrative: Preop diagnosis: 1. Right thumb nail matrix squamous cell carcinoma 2. Right thumb distal phalanx invasive squamous cell carcinoma of bone Postop diagnosis: Same Procedure: 1. Right thumb IP level amputation and biopsy Surgeon: Martina Sim MD Oven Equipment Repairer: Jimmy MONTALVO Anesthesia: General Anesthesia Findings: Wound clean no longer any purulence Implants: None Tourniquet time: 22 minutes EBL: 5.0 ml Specimen: Right thumb nail bed squamous cell carcinoma, with invasive squamous cell carcinoma of bone involving distal phalanx sent to histopathology Drains: None Complications: None Disposition: Brought to the recovery room in stable condition Plan: [ ] Follow-up next week for wound check, and to check pathology Assure proper follow up with Oncology Anticipate suture removal 3 weeks postop Indications: The patient is a 54 year old man with squamous cell carcinoma of the nail bed, with invasive squamous cell carcinoma of bone involving the distal phalanx of the thumb . The risks and benefits of operative treatment, including but not limited to risk of damage to blood vessels, nerves, tendons, infection, recurrence, persistent pain or numbness, incomplete resolution of preoperative symptoms, or need for further surgery were discussed with the patient and they wished to proceed with surgery. Procedure: Once consent was obtained patient was brought back to the operating suite and placed in the operating table in a supine position. . Perioperative antibiotics and anesthesia was administered by the anesthesia team. A tourniquet was applied to the proximal aspect of the right upper extremity and the limb was prepped and draped in a standard surgical fashion. The limb was elevated exsanguinated with Esmarch bandage and the tourniquet inflated to 250 mm of mercury for a total tourniquet time of 22 minutes. I made a transverse incision at the dorsal aspect of the IP joint of the right thumb. This was extended through the extensor tendon and down to the IP joint. I then extended this distally on both sides of the nail bed leaving a wide margin. The soft tissues were then dissected off of the distal phalanx and the distal phalanx and tissues of the nail bed were excised, removed from the patient and placed on the back table to be sent for histopathology. The skin and soft tissues of the pad of the thumb were then appropriately sized and shaped. Wound was copiously irrigated with normal saline. At this point the tourniquet was deflated and hemostasis obtained with a brief period of local pressure and bipolar electrocautery. The wound was copiously irrigated with normal saline. I then brought the volar flap up over the distal aspect of the proximal phalanx. Once appropriately shaped and positioned the skin edges were reapproximated with some 4-0 Prolene suture material. A digital block was performed utilizing some 1% lidocaine with epinephrine for postop pain control and a sterile dressing was applied. The patient appears to have tolerated the procedure well and with no complications. All digits were well vascularized conclusion of the case.
[2024-08-22 09:05] VITALS: BP 109/65; PULSE 69; RESP 16; TEMP 36.5; O2SAT 93
[2024-08-22 09:10] VITALS: BP 145/77; PULSE 66; RESP 16; O2SAT 97
[2024-08-22 09:15] VITALS: BP 135/83; PULSE 57; RESP 16; O2SAT 97
[2024-08-22] MEDS: Ketorolac Tromethamine 15 MG/ML VIAL IVPUSH (09:18)
[2024-08-22 09:20] VITALS: BP 134/86; PULSE 61; RESP 16; O2SAT 98
[2024-08-22 09:35] VITALS: BP 142/85; PULSE 61; RESP 20; TEMP 36.1; O2SAT 98
--- NOTE | 2024-08-22 14:02 | HO.POSTANES ---
Post Anesthesia Evaluation Post Anesthesia Evaluation Date of Service: 08/22/24 Vital Signs: Vital Signs Temp Pulse Resp BP Pulse Ox O2 Del Method 08/22/24 09:35 97 F 61 20 142/85 H 98 Room Air 08/22/24 09:20 61 16 134/86 98 Room Air 08/22/24 09:15 57 16 135/83 97 Room Air 08/22/24 09:10 66 16 145/77 H 97 Room Air 08/22/24 09:05 97.7 F 69 16 109/65 93 Room Air 08/22/24 06:36 97.9 F 58 16 130/81 96 Room Air Anesthesia: General LMA Mental Status: Awake Pain Control: Satisfactory Nausea/Vomiting: None Hydration: Adequate Anesthesia-Related Issues: No Anes. Related Issues
== END 2024-08-22 10:10 | disposition home or self-care (01) ==
PROVIDERS: Visit Provider Orthopaedic Surgery
PROC: (CPT 26951; principal; 2024-08-22 07:30)
DX: C44.622 Squamous cell carcinoma of skin of right upper limb, including shoulder (principal); C79.51 Secondary malignant neoplasm of bone; B35.1 Tinea unguium; F17.210 Nicotine dependence, cigarettes, uncomplicated
CPT/HCPCS: 26951; 88305; 88311; J0131; J0690; J1100; J1885; J2003; J2004; J2250; J2405; J2704; J3010

== ENCOUNTER → 2024-08-22 05:44 | Outpatient (BNV) | payer OTHER, SELFPAY | PROVIDERS: Visit Provider Orthopaedic Surgery | DX: C44.622 Squamous cell carcinoma of skin of right upper limb, including shoulder (principal) | CPT/HCPCS: 26951 ==

== ENCOUNTER → 2024-08-23 13:17 | Outpatient (BNV) | payer OTHER, SELFPAY | PROVIDERS: Visit Provider Internal Medicine Medical Oncology | DX: C44.622 Squamous cell carcinoma of skin of right upper limb, including shoulder (principal) | CPT/HCPCS: 99203 ==

== ENCOUNTER 2024-08-28 09:09 | Outpatient (REF) | payer OTHER, SELFPAY ==
--- NOTE | ~2024-08-28 | XR_ITS ---
EXAMINATION: XR HAND 3 OR MORE VIEWS RIGHT HISTORY: M79.641 - Pain in right hand COMPARISON: Comparison is made with the prior examination dated 08/11/2024. FINDINGS: Three views of the right hand are submitted. Osseous mineralization is normal. The patient is status post amputation of the thumb at the level of the interphalangeal joint. There is an old healed fracture deformity of the 5th metacarpal. There is no acute fracture or dislocation. The joint spaces are preserved. The soft tissues are unremarkable. XR/XR hand RT min 3V IMPRESSION: Status post amputation of the thumb at the interphalangeal joint. Electronically signed by: Madan Mathew MD 08/29/2024 08:40 AM EDT
== END 2024-08-28 09:10 | disposition home or self-care (01) ==
LOC: HO.HOSX 09:09
PROVIDERS: Visit Provider Orthopaedic Surgery
DX: S68.011D Complete traumatic metacarpophalangeal amputation of right thumb, subsequent encounter (principal); M79.641 Pain in right hand; C44.622 Squamous cell carcinoma of skin of right upper limb, including shoulder; L03.011 Cellulitis of right finger; C79.51 Secondary malignant neoplasm of bone; B35.1 Tinea unguium
CPT/HCPCS: 73130; 99212

== ENCOUNTER 2024-08-28 10:31 | Outpatient (AMB) | payer OTHER, SELFPAY ==
--- NOTE | 2024-08-28 10:49 | A.OFFVIS_ITS ---
Intake Visit Reasons: PO 1 week RT thumb IP amp 08/22/24 AR Intake Note: Michelet 54 yr old male presents today for his P/O visit for his 1 week wound check for his right thumb IP amputation DOS 08/22/[address] Sim. States he has very little pain, he is only taking ibuprofen, and would like to discuss returning to work. Allergies No Known Allergies Allergy (Verified 08/28/24 10:52) HPI HPI PO 1 week RT thumb IP amp 08/22/24 AR: Details: Michelet is a 54 year old left hand dominant man who returns for a wound check, S/P right thumb IP joint level amputation, DOS: 08/22/24. He has a Hx of right thumb I&D, naibed debridement & nail plate removal, DOS: 08/12/24. He says he is doing better. 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 He smokes Marijuana. He would like to discuss his RTW status. He is scheduled to see his PCP on 10/01/24. He was seen by Oncology on 08/23/24, and they are awaiting pathology results. 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 Review of Systems Const All systems reviewed & are unremarkable except as noted in HPI and below Physical Exam Const General: no acute distress and alert Orientation/consciousness: patient oriented x3 Neuro General: patient oriented x3 Extrem Other: The patient was alert oriented and in no acute distress Sutures remain in place Good sensibility to the tip of the thumb He can oppose his index & middle fingers to his thumb Good active flexion and extension at the MCP joint Cap refill brisk Pathology report 08/22/24 Diagnosis Thumb, right, amputation: Invasive squamous cell carcinoma, well differentiated, extending into bone; negative margins. Pathology report 08/12/24 Diagnosis A. Bone, right thumb, distal phalanx, biopsy: Squamous cell carcinoma, moderately differentiated, involving bone; negative for osteomyelitis. B. Skin, right thumb, biopsy: Invasive squamous cell carcinoma, moderately differentiated. Gram stain Final 08/12/24-1325 Gram stain results: No polys 3+ epithelial cells 3+ Gram-positive cocci Routine Culture Final 08/14/24-1508 Organism 1 Strep agalactiae (Grp B) Quantity 2+ Susc N/A Susceptibility not routinely performed on this isolate. Organism 2 Corynebacterium species Quantity 3+ Susc N/A Susceptibility not routinely performed on this isolate. Anaerobic Culture Final 08/17/24-1333 Report Mixed anaerobic noah. No Bacteroides or Clostridium species isolated. Fungus Cult Hair/Skin/Nail Preliminary 08/19/24-1447 08/19/24 No fungi isolated to date. Culture is examined weekly for a total of 28 days incubation. A change in status will result in an updated culture report. Acid-Fast Smear Final 08/15/24-1425 Acid-Fast Smear No acid-fast bacilli seen. 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 phal. Code(s): C79.51 - Secondary malignant neoplasm of bone Category: Medical (5) Fungal infection of nail: Comment: R MF, L MF, L SF Code(s): B35.1 - Tinea unguium Category: Medical Plan Assessment & Plan: 1. Right thumb distal phalanx squamous cell carcinoma, S/P I&D biopsy DOS: 08/12/24 Negative for Osteomyelitis 2. Right thumb nailbed invasive squamous cell carcinoma S/P removal of nail plate & nailbed debridement and biopsy 3. Right thumb infection Grew out Corynebacterium and group B strep S/P IP joint level revision amputation DOS: 08/22/24 The patient appears to be doing well post-operatively, and he is happy with the appearance of his thumb compared to prior. I educated him about the post-operative course I explained the signs and symptoms of infection, if the patient develops any new or worsening erythema, drainage, pain, or warmth they should contact the clinic or attend the ED. 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 I explained that he will likely be out of work for at least 3 more weeks. He expressed understanding. He should continue his follow-up with the oncologist. He will follow up in 2 weeks for a wound check & suture removal. Anticipate possible return to work at his next appointment. 4. Several bilateral hand nails with visible fungal infections Visibly darkened R MF, L MF, L SF He says these fingernails have had this appearance for a very long time He says his thumb nail started out looking like these fingernails several years ago. We will discuss treatment for these when he has recovered from his thumb surgery. I would say these are most likely fungal nail deformities, though we will need a biopsy to rule out possible cancer diagnosis He says he cannot afford more time off of work at this time, and is anticipating that he will not be able to afford time off for treatment until the end of the summer. Scribed for Martina Sim MD by Jim Perera, registered medical assistant, on 08/28/24 at 11:20 AM, EST. 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
== END 2024-08-28 11:44 | disposition home or self-care (01) ==
LOC: HO.HOS 10:31
PROVIDERS: Visit Provider Orthopaedic Surgery
DX: S68.011A Complete traumatic metacarpophalangeal amputation of right thumb, initial encounter (principal); C44.622 Squamous cell carcinoma of skin of right upper limb, including shoulder; L03.011 Cellulitis of right finger; C79.51 Secondary malignant neoplasm of bone; B35.1 Tinea unguium
CPT/HCPCS: 99024

== ENCOUNTER → 2024-08-28 10:32 | Outpatient (BNV) | payer OTHER, SELFPAY | PROVIDERS: Visit Provider Radiology Diagnostic Radiology | DX: M79.641 Pain in right hand (principal) | CPT/HCPCS: 73130 ==

== ENCOUNTER 2024-09-11 11:05 | Outpatient (AMB) | payer OTHER, SELFPAY ==
--- NOTE | 2024-09-11 11:07 | A.OFFVIS_ITS ---
Vital Signs 09/11/24 11:09 Height 5 ft 8 in Weight 185 lb BMI 28.1 Intake Visit Reasons: PO RT thumb IP amp 08/22/24 AR Intake Note: Michelet 54 yr old male presents today for his P/O visit for his wound check for his right thumb IP amputation DOS 08/22/[address] Sim. States he is doing well, no pain, and would like to discuss returning to work. Allergies No Known Allergies Allergy (Verified 09/11/24 11:10) HPI HPI PO RT thumb IP amp 08/22/24 AR: Details: Michelet is a 54 year old left hand dominant man who returns for a wound check, S/P right thumb IP joint level amputation for invasive squamous cell ca, DOS: 08/22/24. He has a Hx of right thumb I&D, naibed debridement & nail plate removal, DOS: 08/12/24. He says he is doing well and denies any pain. 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 He would like to discuss his RTW status. He is scheduled to see his PCP on 10/01/24. He was seen by Oncology on 08/23/24, and they are awaiting pathology results. 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 Sutures removed and Steri-Strips applied Good sensibility to the tip of the thumb He can oppose his index & middle fingers to his thumb Good active flexion and extension at the MCP joint Cap refill brisk Thickened brown nail deformity, likely fungal deformity, of the right middle, left middle, and left small fingers Pathology report 08/22/24 Diagnosis Thumb, right, amputation: Invasive squamous cell carcinoma, well differentiated, extending into bone; negative margins. Pathology report 08/12/24 Diagnosis A. Bone, right thumb, distal phalanx, biopsy: Squamous cell carcinoma, moderately differentiated, involving bone; negative for osteomyelitis. B. Skin, right thumb, biopsy: Invasive squamous cell carcinoma, moderately differentiated. Gram stain Final 08/12/24-1325 Gram stain results: No polys 3+ epithelial cells 3+ Gram-positive cocci Routine Culture Final 08/14/24-1508 Organism 1 Strep agalactiae (Grp B) Quantity 2+ Susc N/A Susceptibility not routinely performed on this isolate. Organism 2 Corynebacterium species Quantity 3+ Susc N/A Susceptibility not routinely performed on this isolate. Anaerobic Culture Final 08/17/24-1333 Report Mixed anaerobic noah. No Bacteroides or Clostridium species isolated. Fungus Cult Hair/Skin/Nail Preliminary 08/19/24-1447 08/19/24 No fungi isolated to date. Culture is examined weekly for a total of 28 days incubation. A change in status will result in an updated culture report. Acid-Fast Smear Final 08/15/24-1425 Acid-Fast Smear No acid-fast bacilli seen. 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 phal. Code(s): C79.51 - Secondary malignant neoplasm of bone Category: Medical (5) Fungal infection of nail: Comment: R MF, L MF, L Code(s): B35.1 - Tinea unguium Category: Medical Plan Assessment & Plan: 1. Right thumb distal phalanx squamous cell carcinoma, S/P I&D biopsy 2. Right thumb nailbed invasive squamous cell carcinoma 3.?Right thumb infection S/P removal of nail plate & nailbed debridement and biopsy, I&D DOS: 08/12/24 Negative for Osteomyelitis Grew out Corynebacterium and group B strep Invasive squamous cell ca found, involving distal phalanx Second surgery: S/P IP joint level revision amputation DOS: 08/22/24 - histopathology with clean margins - following up with oncology referral The patient appears to be doing well post-operatively, and he is happy with the appearance of his thumb compared to prior. 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 He was given a note for work to return on light duty, with a 2lb weight limit for the next 3 weeks, effective 09/16/24 He should continue his follow-up with the oncologist. 4. Right middle fingernail with visible fungal infection Visibly darkenedand thickened I educated him about this condition I discussed operative and non-operative treatment options The patient would like to proceed with surgery The risks and benefits of operative treatment were discussed with the patient and the patient wishes to proceed with surgery. These risks include, but are not limited to risk of damage to blood vessels, nerves, tendons, infection, recurrence, incomplete relief of preoperative symptoms, persistent pain, possible need for further surgery and the risks associated with regional blocks and anesthesia. The plan is to take the patient to the operating room sometime in the next few weeks for the following procedures: 1. Right middle fingernail removal & possible biopsy, under local All of the preoperative paperwork including the consent was reviewed today. All the patient's questions were answered. The patient understands that they will be contacted by our oral and maxillofacial surgery soon to schedule this procedure He denies Diabetes, blood thinners, asthma, heart, lung, kidney issues 5. Left middle fingernail with visible fungal infection Visibly darkened 6. Left small fingernail with visible fungal infection Visibly darkened He says these fingernails have had this appearance for a very long time He says his thumb nail started out looking like these fingernails several years ago. We will discuss treatment for these when he has recovered from his right hand surgery. I would say these are most likely fungal nail deformities, though we will need a biopsy to rule out possible cancer diagnosis Scribed for Martina Sim MD by Jim Perera, biomedical scientist, on 09/11/24 at 11:30 AM, EST. Coding Level of Care Code Est Pt Level 4 (56520) Diagnoses Amputation of thumb, right S68.011A Squamous cell carcinoma of skin of finger of right hand C44.622 Infection of nail bed of finger of right hand L03.011 Metastatic squamous cell carcinoma to bone C79.51 Fungal infection of nail B35.1
[2024-09-11 11:09] VITALS: BMI 28.1
== END 2024-09-11 11:54 | disposition home or self-care (01) ==
LOC: HO.HOS 11:05
PROVIDERS: Visit Provider Orthopaedic Surgery
DX: S68.011A Complete traumatic metacarpophalangeal amputation of right thumb, initial encounter (principal); C44.622 Squamous cell carcinoma of skin of right upper limb, including shoulder; L03.011 Cellulitis of right finger; C79.51 Secondary malignant neoplasm of bone; B35.1 Tinea unguium
CPT/HCPCS: 99024

== ENCOUNTER → 2024-09-11 11:05 | Outpatient (BNVA) | payer OTHER, SELFPAY | PROVIDERS: Visit Provider Orthopaedic Surgery | DX: Z47.81 Encounter for orthopedic aftercare following surgical amputation (principal); C44.622 Squamous cell carcinoma of skin of right upper limb, including shoulder; C79.51 Secondary malignant neoplasm of bone; B35.1 Tinea unguium; L03.011 Cellulitis of right finger; Z89.011 Acquired absence of right thumb | CPT/HCPCS: 99212 ==

== ENCOUNTER 2024-10-01 12:55 | Outpatient (AMB) | payer OTHER, SELFPAY ==
[2024-10-01 13:05] VITALS: BP 120/70; PULSE 60; RESP 18; TEMP 36.9; O2SAT 98; BMI 28.7
--- NOTE | 2024-10-01 13:05 | A.OFFPC_ITS ---
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, cancer diagnosis, pcp change Intake Note: Pt is here today as a New Patient to [facility] care Allergies No Known Allergies Allergy (Verified 10/01/24 13:44) Medication List - Last Reconciled 10/01/24 by Dara Goncalves MD No Known Home Meds Tobacco use date assessed: 10/01/24 Dental Screening Dental Screen Date: 10/01/24 Did you have a dental visit in the last 12 months?: No Did you have a dental problem in the last 6 months where you did not have access to dental care?: No Was dental information given to patient?: No HPI 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 He is currently being followed by Dr. Wasserman who feels that he does not need any further radiation therapy. He has thickened brown nail deformity, likely fungal deformity, of the right middle, left middle, and left small fingers, and is to be scheduled for nail removal and biopsy of the 3rd middle finger on the right , with Dr. iSm. He has been feeling well otherwise, with no pain over surgical site. No complaints at present time. 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 1. Little interest or pleasure in doing things: not at all 2. Feeling down, depressed, or hopeless: not at all 3. Trouble falling or staying asleep, or sleeping too much: not at all 4. Feeling tired or having little energy: not at all 5. Poor appetite or overeating: not at all 6. Feeling bad about yourself - or that you are a failure or have let yourself or your family down: not at all 7. Trouble concentrating on things, such as reading the newspaper or watching television: not at all 8. Moving or speaking so slowly that other people could have noticed. Or the opposite - being so fidgety or restless that you have been moving around a lot more than usual: several days 9. Thoughts that you would be better off or of hurting yourself in some way: not at all Total score: 1 Depression Screening Interpretation: Negative Depression Screening Done: Yes 56951 - PHQ-9 Billing: Yes Source: Developed by Drs. Madan Acevedo, Allison Amor, Wei Alejandra and colleagues, with an educational aurora from [employer]. Thrive Questionnaire Date Thrive assessed: 08/12/24 I am a: Patient What is your living situation today?: I have a steady place to live Within the past 12 months, did the food you bought not last and you didn't have the money to get more?: I choose not to answer this question Within the past 12 months, did you worry whether your food would run out before you got money to buy more?: I choose not to answer this question Do you have trouble paying for medicines?: No Do you have trouble getting transportation to medical appointments?: No Do you have trouble paying your heating and electricity bill?: No Do you have trouble taking care of your child, family member or friend?: No Do you have trouble with day-to-day activities such as bathing, preparing meals, shopping, managing finances, etc.?: No Are you currently unemployed and looking for a job?: No Are you interested in more education?: No Please select the resources that you would like help with: None Currently or been in a relationship where the following occur: No concerns reported THRIVE Score: 0 AUDIT C Alcohol Use Questionnaire (AUDIT-C) 1. How often do you have a drink containing alcohol?: Never Total Score: 0 MICHELLE-7 AMB Questionnaire MICHELLE-7 Date MICHELLE - 7 assessed: 10/01/24 Feeling nervous, anxious, or on edge: 3 = Nearly every day Not being able to stop or control worryin = More than half the days Worrying too much about different things: 2 = More than half the days Trouble relaxin = Not at all Being so restless that it is hard to sit still: 1 = Several days Becoming easily annoyed or irritable: 0 = Not at all Feeling afraid as if something awful might happen: 1 = Several days Total MICHELLE-7 score (0-4 normal; 5-9 mild; 10-14 moderate; 15-21 severe): 9 Source: Developed by Drs. Madan Acevedo, Allison Amor, Wei Alejandra and colleagues, with an educational aurora from [employer]. MICHELLE-7 Assessment Billing MICHELLE-7 Assessment Tool: MICHELLE-7 Assessment 13432 Review of Systems Const Denies body aches, Denies fatigue, Denies fever(s), Denies headache(s) and Denies weakness Eyes Denies change in vision ENT Denies dizziness, Denies headache(s), Denies nasal congestion and Denies nasal discharge Card Denies chest pain, Denies lightheadedness, Denies palpitations and Denies dyspnea Resp Denies chest congestion, Denies cough, Denies dyspnea and Denies wheezing GI Denies abdominal pain, Denies change in bowel habits and Denies heartburn Denies hematuria, Denies difficulty urinating, Denies dysuria, Denies urinary frequency and Denies urinary urgency Musc Reports no additional complaints Skin/Breast Denies rash Neuro Denies dizziness, Denies headache(s) and Denies weakness Psych Reports no additional complaints Endo Denies fatigue, Denies polydipsia, Denies polyuria and Denies palpitations Adrien/Lymph Denies easy bruising Aller/Immun Denies seasonal rhinorrhea and Denies wheezing Physical exam (Primary Care) Vital Signs: Last Vital Signs Temp 98.4 F 10/01/24 13:05 Pulse 60 10/01/24 13:05 Resp 18 10/01/24 13:05 BP 120/70 10/01/24 13:05 Pulse Ox 98 10/01/24 13:05 Oxygen Delivery Method Room Air 10/01/24 13:05 BMI result Body Mass Index 28.7 Tobacco/Smoking Status: Tobacco use Status Tobacco use date assessed 10/01/24 10/01/24 13:11 Patient Tobacco Use Status Former Tobacco user 10/01/24 13:11 e-Cigarette/Vaping Use Currently Using 10/01/24 13:11 PHQ-9: PHQ-9 Score PHQ-9: Total score 1 10/01/24 14:04 Depression Screening Interpretation: Negative Thrive Assessment: Date of Thrive Assessment Date Thrive assessed 08/12/24 10/01/24 13:11 Currently or been in a relationship where the following occur: No concerns reported Const General: no acute distress and alert Orientation/consciousness: patient oriented x3 HENMT Head: Yes normocephalic Ears: external ears normal, TM's normal bilaterally and EAC's normal General nose exam: Normal external nose present Face and sinus: Yes face symmetric Mouth: Normal oral and palatal mucosa present, tongue normal, oropharynx normal and moist mucous membranes Eyes General: appearance normal, both eyes and all related structures Eyelids: Yes eyelids normal Conjunctivae: conjunctivae normal Sclerae: sclerae normal Pupils: Equal, round and reactive pupils present EOM: EOMs intact bilaterally Neck Neck: Yes full ROM, Yes no lymphadenopathy and Yes supple Thyroid: Thyroid normal Resp Effort & Inspection: normal respiratory effort and able to speak in complete sentences Auscultation: clear to auscultation bilaterally Cardio Rate: regular rate Rhythm: regular rhythm Heart sounds: S1 normal heart sound present and S2 normal heart sound present GI Palpation (GI): Soft to palpation, nontender, no guarding and no masses Auscultation: normal bowel sounds General: Yes no CVA tenderness Male General Exam: No hernia Scrotum: no hydroceles and no inguinal hernias Testes: no testicular mass Back/Spine/Pelvis Back: no CVA tenderness and No back tenderness Skin General skin exam: no rashes or lesions noted Neuro General: patient oriented x3, gait normal, moves all extremities, Normal light touch and pain sensation, no focal motor deficits and CN's II-XI intact bilaterally Cranial nerves: Yes Equal, round and reactive pupils present Cognition (Neuro): normal cognition Gait exam (Neuro): Normal gait present Motor exam (neuro): 5/5 motor strength present throughout Extrem Other: Right thumb amputee at IP joint, and discolored nail on right middle finger and left middle finger as well as in the left 5th finger. General: Yes full ROM, Yes no joint enlargement, Yes no pedal edema and Yes normal gait Psych Appearance: grossly normal and well kempt Mental Status: mental status grossly normal Speech and movement: Normal speech and movement present Affect: normal affect Attitude: cooperative Thought process: Normal thought process present Thought content: Normal thought content present Coding Level of Care Code New Pt Prev Care 40-64y(10221) Diagnoses Annual visit for general adult medical examination with abnormal findings Z00.01 Squamous cell carcinoma of skin of finger of right hand C44.622 Vitamin B1 deficiency E51.9 Vitamin D deficiency E55.9 Dyslipidemia E78.5 Additional Codes PHQ-9 - 85289 - PHQ-9 Billing: Yes ([id number]) MICHELLE-7 Assessment Billing - MICHELLE-7 Assessment Tool: MICHELLE-7 Assessment 50460 ([id number]) Assessment & Plan Assessment & Plan (1) Annual visit for general adult medical examination with abnormal findings: Code(s): Z00.01 - Encounter for general adult medical examination with abnormal findings Plan: Will check fasting lipid and fasting glucose levels as well as renal function. Recommended dental visit every 6 months and regular eye exams, at least every 2 years. Take adequate calcium in diet and vitamin-D 3 at 2000 IU per cap once a day, in addition to weight-bearing exercises to help maintain good muscle tone and weight control. Instructed to do self-testicular exam check for any mass. Overdue for a screening colonoscopy but patient would like to postpone that until he gets through with treatment of his cancer. Reminded to get yearly flu vaccine, and COVID booster, up-to-date with his Tdap, received 1 pneumococcal vaccination in 2019 (2) Squamous cell carcinoma of skin of finger of right hand: Comment: Code(s): C44.622 - Squamous cell carcinoma of skin of right upper limb, including shoulder Category: Medical Plan: Followed by Dr. Wasserman. Is to be scheduled for a nail excision and biopsy of right middle finger, to be done by Dr. Sim. (3) Vitamin B1 deficiency: Code(s): E51.9 - Thiamine deficiency, unspecified Category: Medical Plan: Dubious labs showed presence of low vitamin B1 level. Ordered vitamin-B 1 level (4) Vitamin D deficiency: Code(s): E55.9 - Vitamin D deficiency, unspecified Category: Medical Plan: Has history of vitamin-D deficiency, will check vitamin-D level (5) Dyslipidemia: Code(s): E78.5 - Hyperlipidemia, unspecified Category: Medical Plan: Ordered a fasting lipid profile PSA level, vitamin B1 B12 and vitamin-D levels. Stressed importance of adherence to low-cholesterol diet and regular exercise, at least 30 minutes 3 to 4 times a week. Advised patient to make healthy food choices, eat more fruits, vegetables, whole grains, wild caught fish and low- fat dairy. Limit amount of meat and fried or fatty food products, as well as processed foods and fast foods. Orders: Orders Vitamin B6 10/01/24 E51.9 - Thiamine deficiency, unspecified, E55.9 - Vitamin D deficiency, unspecified, Z12.5 - Encounter for screening for malignant neoplasm of prostate Lipid Panel 02/12/25 E78.5 - Hyperlipidemia, unspecified Vitamin D 25-OH Total 10/01/24 E51.9 - Thiamine deficiency, unspecified, E55.9 - Vitamin D deficiency, unspecified, Z12.5 - Encounter for screening for malignant neoplasm of prostate Vitamin B12 and Folate 10/01/24 E51.9 - Thiamine deficiency, unspecified, E55.9 - Vitamin D deficiency, unspecified, Z12.5 - Encounter for screening for malignant neoplasm of prostate Vitamin B1 10/01/24 E51.9 - Thiamine deficiency, unspecified, E55.9 - Vitamin D deficiency, unspecified, Z12.5 - Encounter for screening for malignant neoplasm of prostate PSA,Total (Free>4and<10) 10/01/24 Z12.5 - Encounter for screening for malignant neoplasm of prostate
== END 2024-10-01 14:11 | disposition home or self-care (01) ==
LOC: HO.HMCC 12:55
PROVIDERS: Visit Provider Internal Medicine
DX: Z00.01 Encounter for general adult medical examination with abnormal findings (principal); C44.622 Squamous cell carcinoma of skin of right upper limb, including shoulder; E51.9 Thiamine deficiency, unspecified; E55.9 Vitamin D deficiency, unspecified; E78.5 Hyperlipidemia, unspecified

== ENCOUNTER 2024-10-01 12:55 | Outpatient (REF) | payer OTHER, SELFPAY ==
[2024-10-01 17:08] LABS: PSA,Total (Free>4and<10) 2.17 ng/mL (0.00-4.00)
[2024-10-01 17:17] LABS: Vitamin D 25-OH Total 22.6 ng/mL (>30)
[2024-10-01 17:26] LABS: Folate 11.2 ng/mL (> or = 4.0); Vitamin B12 414 pg/mL (200-900)
[2024-10-05 17:19] LABS: Vitamin B6 4.6 ng/mL (2.1-21.7)
[2024-10-06 14:18] LABS: Vitamin B1 10 nmol/L (8-30)
== END 2024-10-01 12:56 | disposition home or self-care (01) ==
LOC: HO.HMGCLDS 12:55
PROVIDERS: PCP Internal Medicine; Visit Provider Internal Medicine
DX: Z00.01 Encounter for general adult medical examination with abnormal findings (principal); E51.9 Thiamine deficiency, unspecified; E55.9 Vitamin D deficiency, unspecified; E78.5 Hyperlipidemia, unspecified; C44.622 Squamous cell carcinoma of skin of right upper limb, including shoulder; Z89.011 Acquired absence of right thumb; Z12.5 Encounter for screening for malignant neoplasm of prostate
CPT/HCPCS: 36415; 82306; 82607; 82746; 84153; 84207; 84425; 96127; 99386

== ENCOUNTER 2024-10-24 08:49 | Day surgery (SDC) | payer OTHER, SELFPAY ==
[2024-10-24 08:51] VITALS: BMI 30.9
[2024-10-24 08:59] VITALS: BP 142/79; PULSE 63; RESP 20; TEMP 36.5; O2SAT 97
--- NOTE | 2024-10-24 09:46 | P.OP_ITS ---
Operative Note Operative Note Date of Service: 10/24/24 Narrative: Operative Note Preop diagnosis: 1. Right middle finger nail deformity with possible nail bed involvement Postop diagnosis: 1. Right middle finger nail deformity with a soft tissue mass involving the nail bed sterile and possible germinal matrices Procedure: 1. Right middle finger nail plate removal 2. Right middle finger excision of soft tissue mass which involve the ulnar aspect of the nail bed sterile matrix Surgeon: Martina Sim MD Giving Officer: None Anesthesia: digital block using 1% lidocaine with epinephrine Findings: Light brown colored fungating mass deep to the nail plate involving the ulnar half of the nail bed sterile matrix with the deepest aspect extending from roughly the ulnar corner of the eponychial/paronychial border, extending down towards the distal phalanx. EBL: Less than 5 mL Tourniquet time: None Specimens: Right middle finger soft tissue mass involving the ulnar aspect of the nail bed Complications: None Disposition: Brought to recovery room in stable condition Plan: Follow-up for 7-10 days for wound check and to check pathology At that point he can start doing typical wound care, applying a small amount of antibiotic ointment daily. If the pathology comes back positive for squamous cell carcinoma or other significant pathology please schedule him for an appointment with me about 2-4 weeks later for a wound check and to talk about next steps. If the pathology comes back negative for malignancy, then we will treat this as a fungal infection.. He will then stop using antibiotic ointment once the wound is healed, and can buy a tube of Lamisil extra-strength to apply twice a day to the nail bed until the nail fully grows out. In this case he should likely have a follow up with me in about a month to see how he is doing. Indications: The patient is 54 years old, with a right middle finger nail deformity with possible nail bed involvement. Of note, he did have invasive squamous cell carcinoma involving the bone of the distal phalanx of the right thumb, and subsequent partial thumb amputation. . The risks and benefits of operative treatment including but not limited to risk of damage to blood vessels, nerves, tendons, infection, persistent pain, persistent symptoms, recurrence or possible need for additional surgery were discussed with the patient and the patient wishes to proceed with surgery. Procedure: Once consent was obtained a digital block was performed in the preop area using a combination of 1% lidocaine with epinephrine. The patient was then brought back to the operating suite and placed on the operative table in supine position. The right upper extremity was prepped and draped in a standard surgical fashion. A finger tourniquet was placed about the base of the finger for fewer than 30 minutes. Once assured that we had a good block, the nail plate was removed by using a Shickley elevator, and elevating the nail plate off of the nail bed. There is a light brown soft tissue mass that was somewhat hard and distally and was sitting beneath the elevated nail plate and involving the ulnar aspect of the nail bed sterile matrix. The nail plate was removed from beneath the eponychial fold and placed on the back table. It was included with the specimen. I then turned my attention to the soft tissue mass. The more radial aspect of the nail bed sterile matrix appeared to be more normal-appearing. This mass appeared to involve the ulnar aspect of the nail bed sterile matrix and was coming at its base from a point at the corner between the eponychial and paronychial borders. It did extend deep down to almost the distal phalanx. It was carefully excised from the surrounding tissues using iris scissors, moved from the patient and placed on the back table to be sent for histopathology. No visible further masses were appreciated. The finger tourniquet was removed. Once satisfied with removal of the nail plate and excision of the soft tissue mass, the wound was copiously irrigated with normal saline and hemostasis was obtained with a brief period of local pressure. A small amount of antibiotic ointment and a sterile dressing was applied. The patient appears to have tolerated the procedure well and with no complications. All digits were well vascularized at the conclusion of the case.
--- NOTE | 2024-10-24 09:46 | MHC.SHP ---
Pre-Procedural Eval Section A - 24 Hr Update-Section A only Date of Service: 10/24/24 The patient is an INPATIENT: No Changes since office visit: No Cold of Flu in the past 2 weeks, No New Medical Problems, No Changes in Medication and No Patient answered all questions The patient has been examined within 24 hours of the surgical procedure. The History & Physical has been completed within 30 days and I have reviewed it.: Yes Section B - Complete if H&P > 30 days Chief Complaint: Cellulitis of right finger Allergies: Allergies Allergy/AdvReac Type Severity Reaction Status Date / Time No Known Allergies Allergy Verified 10/01/24 13:44 Plan Diagnosis/Plan: Unchanged I have reviewed the history and physical and performed a pertinent physical examination on my patient. No changes have occurred unless specified. Time Spent With Patient Time: Total time managing care of this patient today ____ minutes.
[2024-10-24 11:30] VITALS: BP 145/90; PULSE 63; RESP 16; O2SAT 96
== END 2024-10-24 12:14 | disposition home or self-care (01) ==
PROVIDERS: Visit Provider Orthopaedic Surgery
PROC: (CPT 11750; principal; 2024-10-24 10:30)
DX: M79.89 Other specified soft tissue disorders (principal); D04.61 Carcinoma in situ of skin of right upper limb, including shoulder; L60.8 Other nail disorders; B35.1 Tinea unguium; Z85.830 Personal history of malignant neoplasm of bone; Z89.011 Acquired absence of right thumb; Z87.891 Personal history of nicotine dependence
CPT/HCPCS: 11750; 11730; 88304; 88305; 88312; 88341; 88342; J0171; J2003

== ENCOUNTER → 2024-10-24 08:49 | Outpatient (BNV) | payer OTHER, SELFPAY | PROVIDERS: Visit Provider Orthopaedic Surgery | DX: C44.622 Squamous cell carcinoma of skin of right upper limb, including shoulder (principal); L60.3 Nail dystrophy | CPT/HCPCS: 11730; 26117 ==

== ENCOUNTER → 2024-10-29 15:16 | Outpatient (AMB) | payer OTHER, SELFPAY ==
--- NOTE | 2024-10-29 15:31 | MHC.OFFVIS ---
Intake Visit Reasons: PO-TH: Rt MF nail & mass removal DOS 10/24/24 AR Intake Note: Michelet 54 yr old male presents today via telephone call for a P/O visit for his right middle finger nail & mass removal DOS 10/24/24 AR Allergies No Known Allergies Allergy (Verified 10/01/24 13:44) HPI HPI PO-TH: Rt MF nail & mass removal DOS 10/24/24 AR: Details: Michelet presented for a telehealth appointment to review his surgical pathology. He is S/P right middle finger nail plate removal & excision of soft tissue mass which involve the ulnar aspect of the nail bed sterile matrix, DOS: 10/24/24. He says that he is doing well but has not removed his dressing. He is not sure went to remove his dressing. Of note, the patient is status post a right thumb IP level amputation after biopsy and debridement of the nail bed mass proved to be invasive squamous cell carcinoma. 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 Pathology report 08/22/24 Diagnosis Thumb, right, amputation: Invasive squamous cell carcinoma, well differentiated, extending into bone; negative margins. Pathology report 08/12/24 Diagnosis A. Bone, right thumb, distal phalanx, biopsy: Squamous cell carcinoma, moderately differentiated, involving bone; negative for osteomyelitis. B. Skin, right thumb, biopsy: Invasive squamous cell carcinoma, moderately differentiated. Gram stain Final 08/12/24-1325 Gram stain results: No polys 3+ epithelial cells 3+ Gram-positive cocci Routine Culture Final 08/14/24-1508 Organism 1 Strep agalactiae (Grp B) Quantity 2+ Susc N/A Susceptibility not routinely performed on this isolate. Organism 2 Corynebacterium species Quantity 3+ Susc N/A Susceptibility not routinely performed on this isolate. Anaerobic Culture Final 08/17/24-1333 Report Mixed anaerobic noah. No Bacteroides or Clostridium species isolated. Fungus Cult Hair/Skin/Nail Preliminary 08/19/24-1447 08/19/24 No fungi isolated to date. Culture is examined weekly for a total of 28 days incubation. A change in status will result in an updated culture report. Acid-Fast Smear Final 08/15/24-142 Acid-Fast Smear No acid-fast bacilli seen. Psych Appearance: grossly normal Affect: normal affect Attitude: cooperative Telehealth Telehealth Telehealth Platform: Telephone Location of provider rendering services: practice address Location of patient: address on file Patient Identification confirmed using: Name, : Yes Telehealth method: voice only Patient verbally consented to treatment: Yes Patient verbally consented to billing insurance company: Yes Minutes spent on Phone/Video with Pt.: 15 Assessment & Plan Assessment & Plan (1) Amputation of thumb, right: Comment: IP joint Code(s): S68.011A - Complete traumatic metacarpophalangeal amputation of right thumb, initial encounter Category: Medical (2) 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 phal. Code(s): C79.51 - Secondary malignant neoplasm of bone Category: Medical (5) Fungal infection of nail: Comment: R MF, L MF, L SF Code(s): B35.1 - Tinea unguium Category: Medical Plan Assessment & Plan: 1. Right middle fingernail squamous cell carcinoma Appeared to be coming from the ulnar aspect of the nail bed S/P nail plate removal & excision of soft tissue mass which involve the ulnar aspect of the nail bed sterile matrix DOS: 10/24/24 Pathology came back as squamous cell carcinoma, at least in Situ. Please see the report for additional information as necessary. I educated the patient about this diagnosis. I explained to him that we were referring him to Dr. Anil Gomez, a cage fighter here in [place]. I had a conversation with Dr. Gomez about this patient in his diagnosis. He felt that he was likely a good candidate for Mohs surgery whereby we could attempt to preserve his finger and try to avoid another amputation procedure. The patient is happy that this treatment might be available. We will be sending out the referral to this cage fighter today. Dr. Gomez was also made aware of the nail bed deformities involving the left middle finger and left small finger. He is going to look and see if that is something that he can take care of on his own. If not, I explained that I was happy to take him to surgery to remove those nail bed masses, and then send the patient back to him for Mohs surgery. In the meantime we will have the patient come back later this week for a wound check. The patient can then begin wound care at home. Please note that well about 15 minutes was spent talking with the patient today, time was also spent reviewing the pathology and talking with cage fighter, Dr. Gomez to formulate this plan. 2. Right thumb distal phalanx squamous cell carcinoma, S/P I&D biopsy 3. Right thumb nailbed invasive squamous cell carcinoma 4.?Right thumb infection S/P removal of nail plate & nailbed debridement and biopsy, I&D DOS: 08/12/24 Negative for Osteomyelitis Grew out Corynebacterium and group B strep Invasive squamous cell ca found, involving distal phalanx Second surgery: S/P IP joint level revision amputation DOS: 08/22/24 - histopathology with clean margins - following up with oncology referral He should continue his follow-up with the oncologist. 5. Left middle fingernail with visible fungal infection Visibly darkened 6. Left small fingernail with visible fungal infection Visibly darkened He says these fingernails have had this appearance for a very long time He says his thumb nail started out looking like these fingernails several years ago. We will discuss treatment for these when he has recovered from his right hand surgery. I would say these are most likely fungal nail deformities, though we will need a biopsy to rule out possible cancer diagnosis Scribed for Martina Sim MD by Jim Perera, outside medical sales representative, on 10/29/24 at 3:30 PM, EST. 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
== END ==
PROVIDERS: Visit Provider Orthopaedic Surgery
DX: C44.622 Squamous cell carcinoma of skin of right upper limb, including shoulder (principal); S68.011A Complete traumatic metacarpophalangeal amputation of right thumb, initial encounter; L03.011 Cellulitis of right finger; C79.51 Secondary malignant neoplasm of bone; B35.1 Tinea unguium
CPT/HCPCS: 99024

== ENCOUNTER → 2024-10-29 15:16 | Outpatient (BNVA) | payer OTHER, SELFPAY | PROVIDERS: Visit Provider Orthopaedic Surgery | DX: S68.011A Complete traumatic metacarpophalangeal amputation of right thumb, initial encounter (principal); C44.622 Squamous cell carcinoma of skin of right upper limb, including shoulder; L03.011 Cellulitis of right finger; C79.51 Secondary malignant neoplasm of bone; B35.1 Tinea unguium | CPT/HCPCS: 99212 ==

== ENCOUNTER 2024-11-01 08:19 | Outpatient (AMB) | payer OTHER, SELFPAY ==
[2024-11-01 09:01] VITALS: BMI 30.9
--- NOTE | 2024-11-01 09:01 | MHC.OFFVIS ---
Vital Signs 11/01/24 09:01 Height 5 ft 5 in Weight 186 lb BMI 30.9 Intake Visit Reasons: PO-Rt MF nail & mass removal DOS 10/24/24 AR- Intake Note: Michelet is a 54 year old male who present post operatively after undergoing a right MF nail & mass removal, DOS 10/24/24. Patient reports that he is doing well, and his pain has been very tolerable. Allergies No Known Allergies Allergy (Verified 11/01/24 09:05) HPI HPI PO-Rt MF nail & mass removal DOS 10/24/24 AR-: Details: Michelet is a 54 year old male who present post operatively after undergoing a right MF nail & mass removal, DOS 10/24/24. Patient reports that he is doing well, and his pain has been very tolerable. Patient reports that the dressing has not gotten saturated since surgery. Patient has not changed his dressing since previous evaluation. No other acute complaints or concerns at this time. Of note, the patient was referred to dermatology at last visit, but states that he has not received a phone call from them. COUNTS INCLUDE 234 BEDS AT THE [facility] Medical History Dyslipidemia Vitamin D deficiency Vitamin B1 deficiency Kidney stones Surgical History History of thumb surgery Hx of tonsillectomy Family History Mother Substance use disorder Social History Household Members: Significant Other and Children Housing: Apartment Unable to assess alcohol history related to: Unknown Comment: counts correct Patient Tobacco Use Status: Former Tobacco user e-Cigarette/Vaping Use: Currently Using Second Hand Smoke Exposure: No Substance Use Type: Marijuana service: No Current occupational status: employed 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 Neuro: Normal sensation of the tips of all digits of the right hand at this time Vascular: Cap refill brisk Pain: No tenderness to palpation about right thumb or right middle finger ROM: With encouragement, patient is able to make a closed fist with the right hand Skin: Status post nail removal of right middle finger No active drainage at this time No evidence of nail regrowth No lacerations or abrasions. General: No ecchymosis, erythema, or evidence of infection. 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 phal. Code(s): C79.51 - Secondary malignant neoplasm of bone Category: Medical (3) Amputation of thumb, right: Comment: IP joint Code(s): S68.011A - Complete traumatic metacarpophalangeal amputation of right thumb, initial encounter Category: Medical Plan 1. Squamous cell carcinoma of right thumb and right middle finger Patient is educated about this condition Patient is educated about the typical recovery course At this time, patient is advised that he can wash the surgery site of the right middle finger with soap and water in the sink with a shower, but should avoid submersion Daily dressing changes Patient is given the contact information for the morgue keeper he was referred to at previous visit and is advised he should call their office for appointment soon, as Dr. 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
== END 2024-11-01 10:05 | disposition home or self-care (01) ==
LOC: HO.HOS 08:20
DX: C44.622 Squamous cell carcinoma of skin of right upper limb, including shoulder (principal); C79.51 Secondary malignant neoplasm of bone; S68.011A Complete traumatic metacarpophalangeal amputation of right thumb, initial encounter
CPT/HCPCS: 99024

== ENCOUNTER → 2024-11-01 08:19 | Outpatient (BNVA) | payer OTHER, SELFPAY | DX: C44.622 Squamous cell carcinoma of skin of right upper limb, including shoulder (principal); C79.51 Secondary malignant neoplasm of bone; S68.011A Complete traumatic metacarpophalangeal amputation of right thumb, initial encounter; X58.XXXA Exposure to other specified factors, initial encounter; Y93.9 Activity, unspecified; Y92.9 Unspecified place or not applicable; Y99.9 Unspecified external cause status | CPT/HCPCS: 99212 ==

== ENCOUNTER 2024-11-08 07:59 | Outpatient (AMB) | payer OTHER, SELFPAY ==
--- NOTE | 2024-11-08 08:25 | MHC.OFFVIS ---
Vital Signs 11/08/24 08:26 Height 5 ft 5 in Weight 186 lb BMI 30.9 Intake Visit Reasons: PO-Rt MF nail & mass removal DOS 10/24/24 AR- Intake Note: Michelet is a left hand dominant 54 year old male who presents today post operatively status post right middle finger nail plate removal and right middle finger excision of soft tissue mass which involve the ulnar aspect of the nail bed sterile matrix, DOS: 10/24/[address] Martina Sim. Patient reports he has not been able to make an appointment with a business lawyer. Allergies No Known Allergies Allergy (Verified 11/08/24 08:27) HPI HPI PO-Rt MF nail & mass removal DOS 10/24/24 AR-: Details: Michelet is a left hand dominant 54 year old male who presents today post operatively status post right middle finger nail plate removal and right middle finger excision of soft tissue mass which involve the ulnar aspect of the nail bed sterile matrix, DOS: 10/24/[address] Martina Sim. Patient reports he has not been able to make an appointment with a business lawyer, as [facility] where he was originally referred does not accept his insurance. 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 Neuro: Normal sensation of the tips of all digits of the right hand at this time Vascular: Cap refill brisk Pain: No tenderness to palpation about right thumb or right middle finger ROM: With encouragement, patient is able to make a closed fist with the right hand Skin: Status post nail removal of right middle finger No active drainage at this time No evidence of nail regrowth No lacerations or abrasions. General: No ecchymosis, erythema, or evidence of infection. 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 phal. Code(s): C79.51 - Secondary malignant neoplasm of bone Category: Medical (3) Amputation of thumb, right: Comment: joint Code(s): S68.011A - Complete traumatic metacarpophalangeal amputation of right thumb, initial encounter Category: Medical Plan 1. Squamous cell carcinoma of right thumb and right middle finger Patient is educated about this condition Patient is educated about the typical recovery course At this time, patient is advised that he can wash the surgery site of the right middle finger with soap and water in the sink with a shower, but should avoid submersion Daily dressing changes Patient is given the contact information for [place] [facility] and is advised he should call their office for appointment soon to discuss further treatment for the potential squamous cell carcinoma on the contralateral hand Follow-up in 2 weeks for wound check Coding Level of Care Code Global (51450) Diagnoses 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
[2024-11-08 08:26] VITALS: BMI 30.9
== END 2024-11-08 08:45 | disposition home or self-care (01) ==
LOC: HO.HOS 08:00
DX: C44.622 Squamous cell carcinoma of skin of right upper limb, including shoulder (principal); C79.51 Secondary malignant neoplasm of bone; S68.011A Complete traumatic metacarpophalangeal amputation of right thumb, initial encounter
CPT/HCPCS: 99024

== ENCOUNTER → 2024-11-08 07:59 | Outpatient (BNVA) | payer OTHER, SELFPAY | DX: C44.622 Squamous cell carcinoma of skin of right upper limb, including shoulder (principal); C79.51 Secondary malignant neoplasm of bone; S68.011D Complete traumatic metacarpophalangeal amputation of right thumb, subsequent encounter; X58.XXXD Exposure to other specified factors, subsequent encounter | CPT/HCPCS: 99212 ==

== ENCOUNTER 2024-11-22 08:16 | Outpatient (AMB) | payer OTHER, SELFPAY ==
--- NOTE | 2024-11-22 08:27 | A.OFFVIS_ITS ---
Vital Signs 11/22/24 08:28 Height 5 ft 5 in Weight 186 lb BMI 30.9 Intake Visit Reasons: PO-Rt MF nail & mass removal DOS 10/24/24 AR Intake Note: Michelet is a 54 year old male who presents today for a post operative wound check s/p right middle finger nail & mass removal DOS 10/24/24. It was found that patient has Squamous cell carcinoma. Patient denies any pain today but does complain of itching. Allergies No Known Allergies Allergy (Verified 11/22/24 08:28) HPI HPI PO-Rt MF nail & mass removal DOS 10/24/24 AR: Details: Michelet is a 54 year old male who presents today for a post operative wound check s/p right middle finger nail & mass removal DOS 10/24/24. It was found that patient has Squamous cell carcinoma. Patient denies any pain today but does complain of itching. The patient reports that the wound has dried out quite well from his middle finger nail removal, and he is starting to see some normal appearing nail growing in. No other acute complaints or concerns at this time [facility] Medical History Dyslipidemia Vitamin D deficiency Vitamin B1 deficiency Kidney stones Surgical History History of thumb surgery Hx of tonsillectomy Family History Mother Substance use disorder Social History Household Members: Significant Other and Children Housing: Apartment Unable to assess alcohol history related to: Unknown Comment: counts correct Patient Tobacco Use Status: Former Tobacco user e-Cigarette/Vaping Use: Currently Using Second Hand Smoke Exposure: No Substance Use Type: Marijuana service: No Current occupational status: employed 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 Neuro: Normal sensation of the tips of all digits of the right hand at this time Vascular: Cap refill brisk Pain: No tenderness to palpation about right thumb or right middle finger ROM: With encouragement, patient is able to make a closed fist with the right hand Skin: Status post nail removal of right middle finger No active drainage at this time No evidence of nail regrowth No lacerations or abrasions. General: No ecchymosis, erythema, or evidence of infection. 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 phal. Code(s): C79.51 - Secondary malignant neoplasm of bone Category: Medical Plan 1. Squamous cell carcinoma of right thumb and right middle finger Patient is educated about this condition Patient is educated about the typical recovery course At this time, patient is advised that he can wash the surgery site of the right middle finger with soap and water in the sink with a shower, but should avoid submersion Daily dressing changes Patient is given the contact information for [facility] dermatology and is advised he should call their office for appointment soon to discuss further treatment for the potential squamous cell carcinoma on the contralateral hand If this office does not accept his insurance, he should call his insurance co tate and determine what dermatology offices in the area except well since, and should call us when he has this information and we will place another referral Follow-up in 2 weeks for wound check Orders: Referrals Dermatology Referral C44.622 - Squamous cell carcinoma of skin of right upper limb, including shoulder, C79.51 - Secondary malignant neoplasm of bone, S68.011A - Complete traumatic metacarpophalangeal amputation of right thumb, initial encounter Coding Level of Care Code Global (04732) Diagnoses Amputation of thumb, right S68.011A Squamous cell carcinoma of skin of finger of right hand C44.622 Metastatic squamous cell carcinoma to bone C79.51
[2024-11-22 08:28] VITALS: BMI 30.9
== END 2024-11-22 08:52 | disposition home or self-care (01) ==
LOC: HO.HOS 08:17
DX: S68.011A Complete traumatic metacarpophalangeal amputation of right thumb, initial encounter (principal); C44.622 Squamous cell carcinoma of skin of right upper limb, including shoulder; C79.51 Secondary malignant neoplasm of bone
CPT/HCPCS: 99024

== ENCOUNTER → 2024-11-22 08:16 | Outpatient (BNVA) | payer OTHER, SELFPAY | DX: S68.011A Complete traumatic metacarpophalangeal amputation of right thumb, initial encounter (principal); C44.622 Squamous cell carcinoma of skin of right upper limb, including shoulder; C79.51 Secondary malignant neoplasm of bone | CPT/HCPCS: 99212 ==

== ENCOUNTER 2025-03-11 15:34 | Outpatient (AMB) | payer OTHER, SELFPAY ==
--- NOTE | 2025-03-11 15:53 | MHC.PC.OV ---
Vital Signs 03/11/25 15:54 Height 5 ft 5 in Weight 183 lb BMI 30.4 BP 110/74 Blood Pressure Location Lt brachial Position Sitting Respiration 16 Pulse 63 Pulse Source Pulse Oximeter Temp 98.3 F Temp Source Oral Pulse Oximetry (%) 96 Oxygen Delivery Method Room Air Intake Visit Reasons: 5m follow up reschedule Intake Note: Pt is here today for her 5mo. f/u Allergies No Known Allergies Allergy (Verified 03/11/25 16:03) Medication List - Last Reconciled 03/11/25 by Dara Goncalves MD No Known Home Meds Tobacco use date assessed: 10/01/24 Dental Screening Dental Screen Date: 10/01/24 HPI 5m follow up reschedule HPI Details The patient is a 54-year-old male presenting for follow-up visit. 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 He underwent a subsequent surgery where his fingernail was removed, with pathology confirming squamous cell carcinoma and negative margins, for which no further radiation was recommended. He saw an oncologist, Dr. Wasserman August 2024 , but failed to follow-up with her as scheduled. The nail on the operated finger grew back abnormally, and since his last visit with the hand surgeon in November, he has developed similar lesions on his right middle finger, left index finger, and left fifth finger. He has been trying to see a automotive electrical fitter but has faced issues with his insurance, [employer], and an appointmentwas scheduled, but not until next year. The dermatology office informed him that he only has a fingernail fungus, but pathology reports showed squamous cell carcinoma. In his relevant medical history, the patient has a known vitamin D deficiency but is not currently taking supplements, and his cholesterol was slightly elevated in July. He reports some recent changes to his eating habits. 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 Dyslipidemia Vitamin D deficiency Vitamin B1 deficiency Kidney stones Surgical History History of thumb surgery Hx of tonsillectomy Family History Mother Substance use disorder Social History Household Members: Significant Other and Children Housing: Apartment Comment: counts correct Patient Tobacco Use Status: Former Tobacco user e-Cigarette/Vaping Use: Currently Using Second Hand Smoke Exposure: No Substance Use Type: Marijuana service: No Current occupational status: employed 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 Depression Screening Interpretation: Negative Depression Screening Done: Yes Source: Developed by Drs. Madan Acevedo, Allison Amor, Wei Alejandra and colleagues, with an educational aurora from [employer]. Thrive Questionnaire Date Thrive assessed: 10/01/24 I am a: Patient What is your living situation today?: I have a steady place to live Within the past 12 months, did the food you bought not last and you didn't have the money to get more?: I choose not to answer this question Within the past 12 months, did you worry whether your food would run out before you got money to buy more?: I choose not to answer this question Do you have trouble paying for medicines?: No Do you have trouble getting transportation to medical appointments?: No Do you have trouble paying your heating and electricity bill?: No Do you have trouble taking care of your child, family member or friend?: No Do you have trouble with day-to-day activities such as bathing, preparing meals, shopping, managing finances, etc.?: No Are you currently unemployed and looking for a job?: No Are you interested in more education?: No Please select the resources that you would like help with: None Currently or been in a relationship where the following occur: No concerns reported THRIVE Score: 0 MICHELLE-7 AMB Questionnaire MICHELLE-7 Date MICHELLE - 7 assessed: 10/01/24 Source: Developed by Allison Coronado, Wei Alejandra and colleagues, with an educational aurora from [employer]. Review of Systems Const All systems reviewed & are unremarkable except as noted in HPI and below Physical exam (Primary Care) Vital Signs: Last Vital Signs Temp 98.3 F 03/11/25 15:54 Pulse 63 03/11/25 15:54 Resp 16 03/11/25 15:54 BP 110/74 03/11/25 15:54 Pulse Ox 96 03/11/25 15:54 Oxygen Delivery Method Room Air 03/11/25 15:54 BMI result Body Mass Index 30.4 Tobacco/Smoking Status: Tobacco use Status Tobacco use date assessed 10/01/24 03/11/25 15:57 Patient Tobacco Use Status Former Tobacco user 03/11/25 15:57 e-Cigarette/Vaping Use Currently Using 03/11/25 15:57 Depression Screening Interpretation: Negative Thrive Assessment: Date of Thrive Assessment Date Thrive assessed 10/01/24 03/11/25 15:57 Currently or been in a relationship where the following occur: No concerns reported Const General: no acute distress and alert Orientation/consciousness: patient oriented x3 HENMT Head: Yes normocephalic Ears: external ears normal General nose exam: Normal external nose present Face and sinus: Yes face symmetric Mouth: Normal oral and palatal mucosa present, tongue normal, oropharynx normal and moist mucous membranes Eyes General: appearance normal, both eyes and all related structures Neck Neck: Yes full ROM, Yes no lymphadenopathy and Yes supple Thyroid: Thyroid normal Resp Effort & Inspection: normal respiratory effort and able to speak in complete sentences Auscultation: clear to auscultation bilaterally Cardio Rate: regular rate Rhythm: regular rhythm Heart sounds: S1 normal heart sound present and S2 normal heart sound present GI Palpation (GI): Soft to palpation, nontender, no guarding and no masses Auscultation: normal bowel sounds Back/Spine/Pelvis Back: No back tenderness Skin General skin exam: no rashes or lesions noted Neuro General: patient oriented x3, gait normal, moves all extremities, Normal light touch and pain sensation, no focal motor deficits and CN's II-XI intact bilaterally Cognition (Neuro): normal cognition Gait exam (Neuro): Normal gait present Motor exam (neuro): 5/5 motor strength present throughout Extrem Other: Right thumb amputee at IP joint, and thick black nail on right middle finger and left middle finger as well as in the left 5th finger. 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 There is significant concern for progression of the disease, which has been complicated by a delayed dermatology referral based on a misinterpretation of the diagnosis as fungal. A stat referral will be placed to oncology, Dr Wasserman, and another stat referral will be placed to his hand surgeon (Dr. Martina Sim) for urgent evaluation. The patient is advised to inform the hand surgeon about the issues with the dermatology referral. (2) Dysmorphic fingernail, acquired: Comment: Left 3rd middle finger and 5th finger and right middle finger Code(s): L60.9 - Nail disorder, unspecified Category: Medical Plan: Stat referral ordered to see Dr. Wasserman and Dr. Sim further evaluation and management (3) Vitamin D deficiency: Code(s): E55.9 - Vitamin D deficiency, unspecified Category: Medical Plan: The patient has a history of low vitamin D and is not currently taking supplements. He is advised to start [id number] vitamin D 2000 units daily. A repeat vitamin D level will be checked via lab work in March. (4) Dyslipidemia: Code(s): E78.5 - Hyperlipidemia, unspecified Category: Medical Plan: The patient's cholesterol was noted to be slightly high in July. A repeat cholesterol panel will be ordered for March to monitor this. Orders: Orders Vitamin D 25-OH Total 03/29/25 E55.9 - Vitamin D deficiency, unspecified, E78.5 - Hyperlipidemia, unspecified Lipid Panel 03/29/25 E55.9 - Vitamin D deficiency, unspecified, E78.5 - Hyperlipidemia, unspecified Referrals Orthopedics Referral L60.9 - Nail disorder, unspecified Hematology & Oncology Referral C44.621 - Squamous cell carcinoma of skin of unspecified upper limb, including shoulder
[2025-03-11 15:54] VITALS: BP 110/74; PULSE 63; RESP 16; TEMP 36.8; O2SAT 96; BMI 30.4
== END 2025-03-11 16:24 | disposition home or self-care (01) ==
PROVIDERS: PCP Internal Medicine; Visit Provider Internal Medicine
DX: C44.621 Squamous cell carcinoma of skin of unspecified upper limb, including shoulder (principal); L60.9 Nail disorder, unspecified; E55.9 Vitamin D deficiency, unspecified; E78.5 Hyperlipidemia, unspecified

== ENCOUNTER → 2025-03-11 15:34 | Outpatient (BNVA) | payer OTHER, SELFPAY | PROVIDERS: PCP Internal Medicine; Visit Provider Internal Medicine | DX: C44.622 Squamous cell carcinoma of skin of right upper limb, including shoulder (principal); C44.629 Squamous cell carcinoma of skin of left upper limb, including shoulder; L60.9 Nail disorder, unspecified; E55.9 Vitamin D deficiency, unspecified; E78.5 Hyperlipidemia, unspecified; Z89.011 Acquired absence of right thumb | CPT/HCPCS: 99212 ==

== ENCOUNTER 2025-04-29 11:48 | Outpatient (REF) | payer OTHER, SELFPAY ==
--- NOTE | ~2025-04-29 | XR_ITS ---
EXAMINATION: XR HAND, LEFT CLINICAL INFORMATION: M79.642 - Pain in left hand COMPARISON: None available. TECHNIQUE: PA, lateral, and oblique views of the left hand. FINDINGS: No fracture, dislocation, or suspicious bone lesion. Normal bone mineralization. Normal alignment. Joint spaces are preserved. No significant arthropathy. Soft tissues appear normal. XR/XR hand LT min 3V IMPRESSION: Normal left hand. Electronically signed by: Mike Melton MD 04/30/2025 08:14 AM ANA
== END 2025-04-29 11:49 | disposition home or self-care (01) ==
LOC: HO.HOSX 11:48
PROVIDERS: Visit Provider Orthopaedic Surgery
DX: M79.642 Pain in left hand (principal)
CPT/HCPCS: 73130

== ENCOUNTER 2025-04-30 08:02 | Outpatient (AMB) | payer OTHER, SELFPAY ==
--- NOTE | 2025-04-30 08:14 | A.OFFVIS_ITS ---
Intake Visit Reasons: New prob- LT SF & RT MF sx consult Intake Note: Michelet is a 55 year old left hand dominant male who presents today for a new problem evaluation of his left small finger and right middle finger. Patient was referred by [facility]. Today patient reports deformity in his nail that has been present for a while. States at times mild pain however it is not really painful. Denies numbness or tingling. He would like to discuss treatment options. Allergies No Known Allergies Allergy (Verified 04/30/25 08:48) HPI HPI New prob- LT SF & RT MF sx consult: Details: Michelet is a 54 year old left hand dominant man who returns to discuss his left middle & small finger nail mass & his right middle finger. He is S/P right thumb IP joint level amputation for invasive squamous cell carcinoma, DOS: 08/22/24. He has a Hx of right thumb I&D, naibed debridement & nail plate removal, DOS: 08/12/24. He also is S/P right middle finger nail plate removal & excision of soft tissue mass which involve the ulnar aspect of the nail bed sterile matrix DOS: 10/24/24. He says his right middle fingernail mass has regrown and he would like it removed. He would also like to discuss surgery for his left hand where the left middle and small fingers are similarly affected. Our biopsy of the right middle finger showed squamous cell carcinoma, and we had referred him to Dermatology to see if they can perhaps finish treating that finger with Mohs surgery. It does not look like they were able to do that, and he now has recurrence.. He was seen by Dr. Wasserman here at [facility], and by [facility]. A biopsy of his left middle finger done by [facility] dermatology on 04/16/25, showed squamous cell carcinoma. 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 He smokes Marijuana. 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 Dyslipidemia Vitamin D deficiency Vitamin B1 deficiency Kidney stones Surgical History History of thumb surgery Hx of tonsillectomy Family History Mother Substance use disorder Social History Household Members: Significant Other and Children Housing: Apartment Comment: counts correct Patient Tobacco Use Status: Former Tobacco user e-Cigarette/Vaping Use: Currently Using Second Hand Smoke Exposure: No Substance Use Type: Marijuana service: No Current occupational status: employed 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 Thickened hard fungating brown nail bed mass and nail deformity, of the left middle & small fingers and right middle finger. We now have a biopsy done by me on the right middle finger that was found to be squamous cell carcinoma and a biopsy done by [facility] of the left middle finger that also found it to be squamous cell carcinoma. Therefore I believe we can safely conclude that the mass involving the left small finger that is similar in appearance is also squamous cell carcinoma. The masses are not painful and there is no drainage. The masses are rather hard, growing out from the nail bed and distorting the actual finger nail. Radiographs: 3 views of the left hand were taken and viewed by me today in clinic. They show no bony involvement of either the left middle or small finger distal phalanx External Pathology report [facility] Left middle finger shave biopsy, 04/16/25 Squamous cell carcinoma at least in-situ. Lesion extends to both peripheral & deep margins Dr. Jackelin Ramirez MD Pathology report Right middle finger, 10/24/24 Diagnosis Superficial fragments of squamous cell carcinoma at least in-situ; see microscopic description Pathology report 08/22/24 Diagnosis Thumb, right, amputation: Invasive squamous cell carcinoma, well differentiated, extending into bone; negative margins. Pathology report 08/12/24 Diagnosis A. Bone, right thumb, distal phalanx, biopsy: Squamous cell carcinoma, moderately differentiated, involving bone; negative for osteomyelitis. B. Skin, right thumb, biopsy: Invasive squamous cell carcinoma, moderately differentiated. 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 Left middle fingernail squamous cell carcinoma Confirmed by Dermatology biopsy from 04/16/25 2. Left small fingernail nail bed mass Visibly darkened Identical in appearance to the to confirm squamous cell carcinoma masses on the left middle finger and right middle finger. He says these fingernails have had this appearance for a very long time He says his right thumb nail started out looking like these fingernails several years ago. At this point, it is likely the small finger is also Squamous cell carcinoma, given its similar appearance to his other affected fingernails. He would like to proceed with surgery, beginning with his left hand The risks and benefits of operative treatment were discussed with the patient and the patient wishes to proceed with surgery. These risks include, but are not limited to risk of damage to blood vessels, nerves, tendons, infection, recurrence, incomplete relief of preoperative symptoms, persistent pain, possible need for further surgery and the risks associated with regional blocks and anesthesia. The plan is to take the patient to the operating room sometime in the next few weeks for the following procedures: 1. Left middle finger partial amputation & biopsy for squamous cell carcinoma, under general 2. Left small finger partial amputation & biopsy for squamous cell carcinoma, under general Attempting clean margins All of the preoperative paperwork including the consent was reviewed today. All the patient's questions were answered. The patient understands that they will be contacted by our oral surgery technician soon to schedule this procedure He denies Diabetes, blood thinners, asthma, heart, lung issues He has kidney stones 3. Right middle fingernail squamous cell carcinoma S/P nail plate removal & excision of soft tissue mass which involve the ulnar aspect of the nail bed sterile matrix DOS: 10/24/24 Appeared to be coming from the ulnar aspect of the nail bed Pathology came back as squamous cell carcinoma, at least in Situ. Please see the report for additional information as necessary. We have also talked about partial amputation to obtain clean margins after healing of the surgeries for the left middle and small fingers. 4. Right thumb distal phalanx squamous cell carcinoma, S/P I&D biopsy 5. Right thumb nailbed invasive squamous cell carcinoma 6.?Right thumb infection S/P removal of nail plate & nailbed debridement and biopsy, I&D DOS: 08/12/24 Negative for Osteomyelitis Grew out Corynebacterium and group B strep Invasive squamous cell ca found, involving distal phalanx Second surgery: S/P IP joint level revision amputation DOS: 08/22/24 - histopathology with clean margins - following up with oncology referral He should continue his follow-up with his oncologist, Dr. Wasserman here at [facility].. Please note that greater than 45 minutes was spent with this patient going over the history, evaluating the patient and radiographs, formulating possible treatment options, discussing them with the patient, and documenting the visit. Scribed for Martina Sim MD by Jim Perera, medical device sales representative, on 04/30/25 at 8:45 AM, EST. 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
== END 2025-04-30 09:55 | disposition home or self-care (01) ==
LOC: HO.HOS 08:03
PROVIDERS: PCP Internal Medicine; Visit Provider Orthopaedic Surgery
DX: C44.622 Squamous cell carcinoma of skin of right upper limb, including shoulder (principal); L60.9 Nail disorder, unspecified
CPT/HCPCS: 99215

== ENCOUNTER → 2025-04-30 08:02 | Outpatient (BNVA) | payer OTHER, SELFPAY | PROVIDERS: PCP Internal Medicine; Visit Provider Orthopaedic Surgery | DX: C44.521 Squamous cell carcinoma of skin of breast (principal); L60.9 Nail disorder, unspecified; M79.642 Pain in left hand | CPT/HCPCS: 99212 ==

== ENCOUNTER → 2025-04-30 08:05 | Outpatient (BNV) | payer OTHER, SELFPAY | PROVIDERS: Visit Provider Radiology Diagnostic Radiology | DX: M79.642 Pain in left hand (principal) | CPT/HCPCS: 73130 ==